=== PATIENT | male | born 1930 | race Caucasian/White ===

== ENCOUNTER 2017-05-01 23:45 | Inpatient (IN) | payer OTHER, MEDICARE ==
[~2017-05-01] VITALS: Ht 175.3 cm; Wt 90.0 kg
[~2017-05-01 23:45] MED LIST: CEPH500 PO; COLE625 PO; DIFL150T PO; ENAL10TA7 PO; LEVO125T3 PO; LIAL1.2T PO; NAME5TAB2 PO; OMEG100037 PO; PRIL40CA PO; RANI150 PO; SIMV20TA PO; TEMA15CA PO; VITA20003 PO; [UNRECOGNIZED DRUG - CODE] PO
[2017-05-01 23:50] VITALS: BP 107/75; PULSE 96; RESP 18; TEMP 98.4; O2SAT 96
[2017-05-02] VITALS (11 sets, daily range): BP systolic 98–143; BP diastolic 55–77; PULSE 75–88; RESP 14–20; TEMP 96.8–98.5; O2SAT 93–99
[2017-05-02] MEDS ORDERED: ENAL10TA PO (00:42)
[2017-05-02] MEDS ORDERED: TEMA15CA PO (00:42)
[2017-05-02] MEDS ORDERED: RANI150T PO (00:42)
[2017-05-02] MEDS ORDERED: MEMA14CA PO (00:42)
[2017-05-02] MEDS ORDERED: WELC625T2 PO ×2 (00:42→16:37)
[2017-05-02] MEDS ORDERED: BALS750C PO (00:42)
[2017-05-02] MEDS ORDERED: OMEP40CA2 PO (00:42)
[2017-05-02] MEDS ORDERED: GALA12TA PO (00:42)
[2017-05-02] MEDS ORDERED: SIMV20TA PO ×2 (00:42→16:43)
[2017-05-02] MEDS ORDERED: LEVO125T4 PO (00:42)
[2017-05-02] MEDS ORDERED: SODIUM CHLORIDE 0.9% FLUSH 10 ML FLUSH IV FLUSH PRN ×2 (00:45→03:45)
--- NOTE | 2017-05-02 01:21 | RADRPT ---
EXAM DATE/TIME: 05/02/2017 00:59 [facility] COMPARISON: CT BRAIN W/O CONTRAST, May 26, 2014, 20:44. INDICATIONS : Nausea and vomiting, syncope. RADIATION DOSE: 63.00 CTDIvol (mGy) MEDICAL HISTORY : Hypertension. Carcinoma, colon. Catalan's esophagus SURGICAL HISTORY : Colon resection. ENCOUNTER: Initial ACUITY: 1 day PAIN SCALE: 4/10 LOCATION: cranial TECHNIQUE: Multiple contiguous axial images were obtained of the head. Using automated exposure control and adj ustment of the mA and/or kV according to patient size, radiation dose was kept as low as reasonably a chievable to obtain optimal diagnostic quality images. DICOM format image data is available electro nically for review and comparison. FINDINGS: CEREBRUM: The ventricles are normal for age. Scattered areas of low attenuation throughout the white matter. N o evidence of midline shift, mass lesion, hemorrhage or acute infarction. No extra-axial fluid colle ctions are seen. POSTERIOR FOSSA: The cerebellum and brainstem are intact. The 4th ventricle is midline. The cerebellopontine angle i s unremarkable. EXTRACRANIAL: The visualized portion of the orbits is intact. SKULL: The calvaria is intact. No evidence of skull fracture. CONCLUSION: 1. Nonspecific white matter changes. 2. No change from previous study. Ag Olivas MD on May 02, 2017 at 1:19 Board Certified Radiologist. This report was verified electronically.
--- NOTE | 2017-05-02 01:21 | RADRPT ---
EXAM DATE/TIME: 05/02/2017 01:08 [facility] COMPARISON: CHEST SINGLE AP, April 07, 2014, 13:18. INDICATIONS : Shortness of breath and vomiting. MEDICAL HISTORY : None. SURGICAL HISTORY : None. ENCOUNTER: Initial ACUITY: 1 day PAIN SCORE: 3/10 LOCATION: Bilateral chest FINDINGS: A single view of the chest demonstrates the lungs to be symmetrically aerated without evidence of mas s, infiltrate or effusion. The cardiomediastinal contours are unremarkable. Tortuous thoracic aorta. Osseous structures are intact. CONCLUSION: No acute disease. Ag Olivas MD on May 02, 2017 at 1:20 Board Certified Radiologist. This report was verified electronically.
[2017-05-02 01:39] LABS: BLOOD, URINE SMALL (NEG); GLUCOSE,URINE NEG (NEG); KETONE, URINE NEG (NEG); PH, URINE 5.5 (5.0-8.5)
[2017-05-02 01:41] LABS: NITRITE,URINE POS (NEG)
[2017-05-02 01:42] LABS: URINE COLOR AMBER (YELLW/STRAW)
[2017-05-02 01:45] LABS: BASOPHIL # 0.2 TH/MM3 (0-0.2); BASOPHIL % 1.7 % (0.0-2.0); EOSINOPHIL # 0.1 TH/MM3 (0-0.4); EOSINOPHIL % 0.9 % (0.0-4.0); HEMATOCRIT 42.7 % (39.0-51.0); LYMPH % 5.1 % (9.0-44.0); LYMPHOCYTE # 0.7 TH/MM3 (1.0-4.8); MEAN CORPUSCULAR HEMOGLOBIN 30.9 PG (27.0-34.0); MEAN CORPUSCULAR HGB CONC 33.3 % (32.0-36.0); MONO % 9.2 % (0.0-8.0); NEUT % 83.1 % (16.0-70.0); PLATELET COUNT 285 TH/MM3 (150-450); RED BLOOD COUNT 4.59 MIL/MM3 (4.50-5.90); RED CELL DISTRIBUTION WIDTH 12.8 % (11.6-17.2); WHITE BLOOD COUNT 14.3 TH/MM3 (4.0-11.0)
[2017-05-02 01:47] LABS: CHLORIDE 107 MEQ/L (98-107); POTASSIUM 3.8 MEQ/L (3.5-5.1); SODIUM (NA) 140 MEQ/L (136-145)
[2017-05-02 01:48] LABS: HEMO FLAGS AUTO DIFF
[2017-05-02 01:51] LABS: ANION GAP 11 MEQ/L (5-15); APTT (PATIENT) 24.9 SEC (24.3-30.1); BICARBONATE 22.3 MEQ/L (21.0-32.0); BLOOD UREA NITROGEN 27 MG/DL (7-18); MAGNESIUM 1.7 MG/DL (1.5-2.5); PROTHROMBIN TIME - PATIENT 10.5 SEC (9.8-11.6)
[2017-05-02 01:53] LABS: ALT (GPT) 18 U/L (12-78); AST (GOT) 19 U/L (15-37); GLOMERULAR FILTRATION RATE 41 ML/MIN (>89)
[2017-05-02 01:55] LABS: BACTERIA, URINE MANY /hpf; COMMENT (UR) CULTURE INDICATED; CULTURE IF INDICATED CULTURE INDICATED
[2017-05-02 01:56] LABS: ALKALINE PHOSPHATASE 69 U/L (45-117)
[2017-05-02 02:08] LABS: BANDS 18 % (0-6); NEUTROPHIL # MANUAL DIFF 12.2 TH/MM3 (1.8-7.7); POLYS (SEG NEUTROPHILS) 67 % (16-70); WBC DIFF SAMPLE 100
[2017-05-02 02:09] LABS: PLATELET ESTIMATE SMEAR NORMAL (NORMAL); PLATELET MORPHOLOGY NORMAL (NORMAL); SCAN/DIFF FINAL DIFF MANUAL
--- NOTE | 2017-05-02 02:34 | PD ---
HPI Chief Complaint: GI Complaint Time Seen by Provider: 00:37 Travel History International Travel<30 days: No Contact w/Intl Traveler<30days: No Traveled to known affect area: No History of Present Illness HPI 86-year-old male presents to the emergency department by EMS transport from home for evaluation of possible seizure versus syncopal episode. According to the patient and his caregiver/power of employee benefits attorney with him he lives has been having some mild diarrhea throughout the day and then this evening had significant nausea with episodes of vomiting and copious diarrhea with syncopal episode while sitting on the toilet with seizure form activity with generalized shaking and then collapsed forward while sitting on the toilet and jerking type activity resolved and patient was placed on the floor by his caregiver and awakened. Patient did not present with a postictal state. There was no trauma. Caregiver states that while he was on the toilet he did lean back and hit his head on the tile wall but that was just as he was leaning backwards there was no fall to the floor. Paramedics arrived and patient was awake. Patient has extensive past medical history that includes CAD with stent placement colon cancer with partial colectomy ulcerative colitis suprapubic catheter insertion with recurrent UTIs and recently completed a course of oral antibiotic Keflex 1 week ago as well as history of Catalan's esophagitis and hypothyroidism. No prior history of C. difficile colitis/diarrheal illness. Patient's had no fever or chills. No cough or congestion or chest pain. Patient denies pain. Patient reports he was awake during the whole episode. PFSH Past Medical History Narrative Medical CAD with stent placement hypertension dyslipidemia dementia colon cancer with partial colectomy suprapubic catheter insertion with recurrent UTIs Catalan's esophagitis inflammatory bowel disease/ulcerative colitis hypothyroidism Cancer: Yes (Colon cancer in 2003, in remission) Cardiovascular Problems: Yes High Cholesterol: Yes Chemotherapy: Yes Coronary Artery Disease: Yes Diabetes: No Diminished Hearing: No Gastrointestinal Disorders: Yes GERD: Yes Genitourinary: Yes (new onset retention March 2014) Hypertension: Yes Implanted Vascular Access Dvce: Yes Musculoskeletal: No Neurologic: No Psychiatric: No Reproductive: No Respiratory: No Immunizations Current: Yes Radiation Therapy: Yes Thyroid Disease: Yes Tetanus Vaccination: Unknown Influenza Vaccination: Yes Past Surgical History Abdominal Surgery: Yes (Colon cancer surgery approx 2003) Body Medical Devices: Cardiac stent placed 20-30 years ago Coronary Stent: Yes (X1) Genitourinary Surgery: Yes (supra pubic cath) Other Surgery: Yes (COLON CA REMOVED, BARRETTS ESOPHAGITIS PROCEDURE) Social History Alcohol Use: Yes (1-2 X PER WEEK ) Tobacco Use: No Substance Use: No Allergies-Medications (Allergen,Severity, Reaction): Coded Allergies: No Known Allergies (Unverified , 05/02/17) Reported Meds & Prescriptions Reported Meds & Active Scripts Active Reported Temazepam 15 Mg Cap 15 Mg PO HS PRN Simvastatin 20 Mg Tab 20 Mg PO DAILY Enalapril (Enalapril Maleate) 10 Mg Tab 10 Mg PO DAILY Levothyroxine (Levothyroxine Sodium) 125 Mcg Tab 125 Mcg PO DAILY Galantamine (Galantamine Hydrobromide) 12 Mg Tab 12 Mg PO BID Namenda Xr (Memantine) 14 Mg Caper 14 Mg PO DAILY Ranitidine (Ranitidine HCl) 150 Mg Tab 150 Mg PO BID Omeprazole 40 Mg Cap 40 Mg PO DAILY Balsalazide 750 Mg Cap 750 Mg PO TID Welchol (Colesevelam HCl) 625 Mg Tab 1,875 Mg PO BID Review of Systems Except as stated in HPI: all other systems reviewed are Neg General / Constitutional: No: Fever, Chills HENT: No: Congestion Cardiovascular: No: Chest Pain or Discomfort Respiratory: No: Shortness of Breath Gastrointestinal: Positive: Nausea, Vomiting, Diarrhea, No: Abdominal Pain, Hematemesis, Hematochezia Genitourinary: No: Urgency, Decreased Urinary Output Musculoskeletal: No: Myalgias, Arthralgias Skin: No Rash Neurologic: Positive: Weakness, Syncope, Seizures Psychiatric: No: Anxiety Hematologic/Lymphatic: No: Easy Bruising Physical Exam Narrative GENERAL: Well-developed well-nourished male in no acute distress no respiratory distress SKIN: Warm and dry. HEAD: Normocephalic. EYES: No scleral icterus. No injection or drainage. NECK: Supple, trachea midline. No JVD or lymphadenopathy. CARDIOVASCULAR: Regular rate and rhythm without murmurs, gallops, or rubs. RESPIRATORY: Breath sounds equal bilaterally. No accessory muscle use. GASTROINTESTINAL: Abdomen soft, non-tender, nondistended. MUSCULOSKELETAL: No cyanosis, or edema. BACK: Nontender without obvious deformity. No CVA tenderness. Data Data Last Documented VS Vital Signs Date Time Temp Pulse Resp B/P Pulse Ox O2 Delivery O2 Flow Rate FiO2 05/02/17 02:38 88 18 104/58 99 Room Air 05/01/17 23:50 98.4 Orders Complete Blood Count With Diff (05/02/17 00:37) Comprehensive Metabolic Panel (05/02/17 00:37) Lipase (05/02/17 00:37) Lactic Acid (05/02/17 00:37) Prothrombin Time / Inr (Pt) (05/02/17 00:37) Act Partial Throm Time (Ptt) (05/02/17 00:37) Urinalysis - C+S If Indicated (05/02/17 00:37) Iv Access Insert/Monitor (05/02/17 00:37) Ecg Monitoring (05/02/17 00:37) Oximetry (05/02/17 00:37) Sodium Chloride 0.9% Flush (Ns Flush) (05/02/17 00:45) Electrocardiogram (05/02/17 00:37) Chest, Single Ap (05/02/17 00:37) Troponin I (05/02/17 00:37) Ct Brain W/O Iv Contrast(Rout) (05/02/17 ) Magnesium (Mg) (05/02/17 00:37) Urine Culture (05/02/17 01:20) Sodium Chlor 0.9% 1000 Ml Inj (Ns 1000 M (05/02/17 02:45) Sodium Chlor 0.9% 1000 Ml Inj (Ns 1000 M (05/02/17 02:45) Blood Culture (05/02/17 02:34) Enteric Path (Stool) (05/02/17 02:34) Piperacil-Tazo 4.5 Gm Premix (Zosyn 4.5 (05/02/17 02:45) Admit Order (Ed Use Only) (05/02/17 ) ^ Saline Lock (05/02/17 02:56) Resp Oxygen Deion C Titrat 1-4 L (05/02/17 ) Notify Dr: Other (05/02/17 02:56) Sodium Chloride 0.9% Flush (Ns Flush) (05/02/17 09:00) Sodium Chloride 0.9% Flush (Ns Flush) (05/02/17 03:00) Labs Laboratory Tests Test 05/02/17 01:20 White Blood Count 14.3 TH/MM3 Red Blood Count 4.59 MIL/MM3 Hemoglobin 14.2 GM/DL Hematocrit 42.7 % Mean Corpuscular Volume 93.0 FL Mean Corpuscular Hemoglobin 30.9 PG Mean Corpuscular Hemoglobin 33.3 % Concent Red Cell Distribution Width 12.8 % Platelet Count 285 TH/MM3 Mean Platelet Volume 8.1 FL Neutrophils (%) (Auto) 83.1 % Lymphocytes (%) (Auto) 5.1 % Monocytes (%) (Auto) 9.2 % Eosinophils (%) (Auto) 0.9 % Basophils (%) (Auto) 1.7 % Neutrophils # (Auto) 12.0 TH/MM3 Lymphocytes # (Auto) 0.7 TH/MM3 Monocytes # (Auto) 1.3 TH/MM3 Eosinophils # (Auto) 0.1 TH/MM3 Basophils # (Auto) 0.2 TH/MM3 CBC Comment AUTO DIFF Differential Total Cells 100 Counted Neutrophils % (Manual) 67 % Band Neutrophils % 18 % Lymphocytes % 8 % Monocytes % 7 % Neutrophils # (Manual) 12.2 TH/MM3 Differential Comment FINAL DIFF MANUAL Platelet Estimate NORMAL Platelet Morphology Comment NORMAL Red Cell Morphology Comment NORMAL Prothrombin Time 10.5 SEC Prothromb Time International 1.0 RATIO Ratio Activated Partial 24.9 SEC Thromboplast Time Urine Color TIFFANY Urine Turbidity CLOUDY Urine pH 5.5 Urine Specific [place] 1.025 Urine Protein 30 mg/dL Urine Glucose (UA) NEG mg/dL Urine Ketones NEG mg/dL Urine Occult Blood SMALL Urine Nitrite POS Urine Bilirubin NEG Urine Leukocyte Esterase MOD Urine RBC 10-14 /hpf Urine WBC 50-99 /hpf Urine WBC Clumps FEW Urine Squamous Epithelial 6-8 /hpf Cells Urine Amorphous Sediment LARGE Urine Bacteria MANY /hpf Microscopic Urinalysis Comment CULTURE INDICATED Sodium Level 140 MEQ/L Potassium Level 3.8 MEQ/L Chloride Level 107 MEQ/L Carbon Dioxide Level 22.3 MEQ/L Anion Gap 11 MEQ/L Blood Urea Nitrogen 27 MG/DL Creatinine 1.60 MG/DL Estimat Glomerular Filtration 41 ML/MIN Rate Random Glucose 153 MG/DL Lactic Acid Level 1.7 mmol/L Calcium Level 8.7 MG/DL Magnesium Level 1.7 MG/DL Total Bilirubin 1.0 MG/DL Aspartate Amino Transf 19 U/L (AST/SGOT) Alanine Aminotransferase 18 U/L (ALT/SGPT) Alkaline Phosphatase 69 U/L Troponin I 0.03 NG/ML Total Protein 7.6 GM/DL Albumin 3.2 GM/DL Lipase 212 U/L MDM Medical Decision Making Medical Screen Exam Complete: Yes Emergency Medical Condition: Yes Medical Record Reviewed: Yes Interpretation(s) Troponin I 0.03, not elevated EKG normal sinus rhythm no acute ST elevation or injury pattern change nonspecific T-wave noted V3 to V6 Last Impressions Chest X-Ray 05/02/17 0037 Signed Impressions: Service Date/Time: Tuesday, May 02, 2017 01:08 - CONCLUSION: No acute disease. Ag Olivas MD Head CT 05/02/17 0000 Signed Impressions: Service Date/Time: Tuesday, May 02, 2017 00:59 - CONCLUSION: 1. Nonspecific white matter changes. 2. No change from previous study. Ag Olivas MD CBC & BMP Diagram 05/02/17 01:20 Vital Signs Date Time Temp Pulse Resp B/P Pulse Ox O2 Delivery O2 Flow Rate FiO2 05/02/17 01:36 84 18 99/69 98 Room Air 05/01/17 23:50 18 05/01/17 23:50 98.4 96 18 107/75 96 05/01/17 23:50 18 96 Room Air Differential Diagnosis Syncope vasovagal syncope seizure sepsis UTI colitis arrhythmia electronic disturbance ACS Narrative Course Patient placed on quality assurance monitor final IV access obtained specimens collected and sent for resulting patient bolused with 1 L of normal saline and administered Zofran 4 mg IV lactic acid ordered EKG shows sinus rhythm with no acute ST elevation or injury pattern change nonspecific T-wave changes CBC is automated differential remarkable for leukocytosis of 14,300 with manual differential 18% bands. Patient presented with heart rate of 96 and has 18% bands meets Sirs criteria Urinalysis is markedly abnormal catheter specimen culture indicated UTI patient now meets sepsis criteria and Cardiac enzyme troponin I 0.03, not elevated Patient even additional IV fluids and Zosyn 4.5 g IV piggyback Patient is informed that he'll be admitted for sepsis with diarrheal illness and UTI with indwelling suprapubic catheter. CT brain noncontrast no acute process chest x-ray no acute process Patient's case discussed with on-call medicine physician Dr. Murray will admit Sepsis Criteria SIRS Criteria (2 or more): Heart rate over 90, WBC > 15763, < 4000 or > 10% bands Sepsis Criteria (SIRS+source): Infect source susp/known (uti) Physician Communication Physician Communication discussed with Dr Murray for admission Diagnosis Primary Impression: Syncope Qualified Code: R55 - Vasovagal syncope Additional Impressions: UTI (urinary tract infection) Sepsis Qualified Code: A41.9 - Sepsis, due to unspecified organism Diarrhea in adult patient Admitting Information Admitting Physician Requests: Admit Terra Wilks MD May 02, 2017 02:34
[2017-05-02] MEDS ORDERED: PIPERACIL-TAZO 4.5 GM PREMIX 100 ML IV ONE (02:45)
[2017-05-02] MEDS ORDERED: SODIUM CHLOR 0.9% 1000 ML INJ 1,000 ML IV ONE ×2 (02:45)
[2017-05-02] MEDS ORDERED: SODIUM CHLORIDE 0.9% FLUSH 10 ML FLUSH IVF PRN (03:00)
[2017-05-02] MEDS ORDERED: ACETAMINOPHEN 325 MG TAB PO PRN (03:45)
[2017-05-02] MEDS ORDERED: MAGNESIUM HYDROXIDE SUSP 30 ML CUP PO PRN (03:45)
[2017-05-02] MEDS ORDERED: ACETAMINOPHEN/HYDROcodone 325 MG/5 MG TAB PO PRN (03:45)
[2017-05-02] MEDS ORDERED: SENNOSIDES 8.6 MG TAB PO PRN (03:45)
[2017-05-02] MEDS ORDERED: ONDANSETRON HCL 4 MG/2 ML VIAL IVP PRN (03:45)
[2017-05-02] MEDS ORDERED: MORPHINE SULFATE 4 MG/ML INJ IV PRN (03:45)
[2017-05-02] MEDS ORDERED: BISACODYL 10 MG SUPP RECTAL PRN (03:45)
[2017-05-02] MEDS ORDERED: LACTULOSE SYRUP 20 GM/30 ML CUP PO PRN (03:45)
[2017-05-02] MEDS: SODIUM CHLOR 0.9% 1000 ML INJ 1,000 ML IV SCH ×3 (04:00→23:51)
[2017-05-02] MEDS ORDERED: BALSALAZIDE 750 MG PO SCH (09:00)
[2017-05-02] MEDS ORDERED: PRAVASTATIN SOD 40 MG TAB PO SCH (09:00)
[2017-05-02] MEDS: SODIUM CHLORIDE 0.9% FLUSH 10 ML FLUSH IV FLUSH SCH ×2 (09:00→21:00)
[2017-05-02] MEDS ORDERED: SODIUM CHLORIDE 0.9% FLUSH 10 ML FLUSH IV FLUSH SCH (09:00)
[2017-05-02] MEDS ORDERED: DOCUSATE SODIUM 50 MG/SENNA 8.6 MG TAB PO SCH (09:00)
[2017-05-02] MEDS: metroNIDAZOLE 500 MG INJ 100 ML IV SCH ×3 (09:55→23:50)
[2017-05-02] MEDS: GALANTAMINE HYDROBROMIDE 4 MG TAB PO SCH ×2 (09:58→21:49)
[2017-05-02] MEDS: LEVOTHYROXINE SODIUM 125 MCG TAB PO SCH (09:59)
[2017-05-02] MEDS: PANTOPRAZOLE SOD 40 MG DELAYED RELEASE TAB PO SCH (09:59)
[2017-05-02] MEDS: COLESEVELAM HCL 625 MG TAB PO SCH ×3 (09:59→21:50)
--- NOTE | 2017-05-02 12:44 | HHI.HP ---
[facility] Primary [facility] Physician Viktoria aPk MD Admission Diagnosis syncope; sepsis; uti; diarrheal illness Diagnoses: (1) Sepsis (2) UTI (urinary tract infection) due to urinary indwelling Still catheter (3) Diarrhea in adult patient (4) Hypotension Chief Complaint: Syncope, diarrhea Travel History International Travel<30 Days: No Contact w/Intl Traveler <30 Da: No Traveled to Known Affected Are: No Sepsis Criteria SIRS Criteria (2 or more): Heart rate over 90, WBC > 99288, < 4000 or > 10% bands Sepsis Criteria (SIRS+source): Infect source susp/known Criteria Outcome: Meets sepsis criteria History of Present Illness 86 year-old man with a history of hypertension, colon cancer was brought to the ED for evaluation of syncope and possible seizure. Although patient is alert and oriented, and states that he is fine, however is a very poor historian and stated has no recollection what happened to him last night. Therefore at this time the history is obtained from ED report and chart review below: " 86-year-old male presents to the emergency department by EMS transport from home for evaluation of possible seizure versus syncopal episode. According to the patient and his caregiver/power of criminal attorney with him he lives has been having some mild diarrhea throughout the day and then this evening had significant nausea with episodes of vomiting and copious diarrhea with syncopal episode while sitting on the toilet with seizure form activity with generalized shaking and then collapsed forward while sitting on the toilet and jerking type activity resolved and patient was placed on the floor by his caregiver and awakened. Patient did not present with a postictal state. There was no trauma. Caregiver states that while he was on the toilet he did lean back and hit his head on the tile wall but that was just as he was leaning backwards there was no fall to the floor. Paramedics arrived and patient was awake. Patient has extensive past medical history that includes CAD with stent placement colon cancer with partial colectomy ulcerative colitis suprapubic catheter insertion with recurrent UTIs and recently completed a course of oral antibiotic Keflex 1 week ago as well as history of Catalan's esophagitis and hypothyroidism. No prior history of C. difficile colitis/diarrheal illness. Patient's had no fever or chills. No cough or congestion or chest pain. Patient denies pain. Patient reports he was awake during the whole episode." Review of Systems ROS Limitations: Poor Historian Except as stated in HPI: all other systems reviewed are Neg Past Family Social History Past Medical History Hypertension, hyperlipidemia, Catalan's esophagus Hypothyroidism Past Surgical History Colon cancer Catalan's Esophagus Reported Medications Temazepam 15 Mg Cap 15 Mg PO HS PRN Simvastatin 20 Mg Tab 20 Mg PO DAILY Enalapril (Enalapril Maleate) 10 Mg Tab 10 Mg PO DAILY Levothyroxine (Levothyroxine Sodium) 125 Mcg Tab 125 Mcg PO DAILY Galantamine (Galantamine Hydrobromide) 12 Mg Tab 12 Mg PO BID Namenda Xr (Memantine) 14 Mg Caper 14 Mg PO DAILY Ranitidine (Ranitidine HCl) 150 Mg Tab 150 Mg PO BID Omeprazole 40 Mg Cap 40 Mg PO DAILY Balsalazide 750 Mg Cap 750 Mg PO TID Welchol (Colesevelam HCl) 625 Mg Tab 1,875 Mg PO BID Allergies: Coded Allergies: No Known Allergies (Unverified , 05/02/17) Family History Secondary to to patient's advanced age, family history not relevant Social History There is no report of tobacco, alcohol or illicit drug intake Physical Exam Vital Signs Vital Signs Date Time Temp Pulse Resp B/P Pulse Ox O2 Delivery O2 Flow Rate FiO2 05/02/17 08:00 97.2 84 20 121/77 93 05/02/17 08:00 93 21 05/02/17 05:48 96.8 87 20 143/72 98 05/02/17 05:25 84 18 98 05/02/17 04:38 83 18 106/63 97 Room Air 05/02/17 04:05 93 21 05/02/17 03:33 84 18 104/55 98 Room Air 05/02/17 02:38 88 18 104/58 99 Room Air 05/02/17 01:36 84 18 99/69 98 Room Air 05/01/17 23:50 18 05/01/17 23:50 98.4 96 18 107/75 96 05/01/17 23:50 18 96 Room Air Physical Exam GENERAL: This is a well-nourished, well-developed patient, in no apparent distress. SKIN: No rashes, ecchymoses or lesions. Cool and dry. HEAD: Atraumatic. Normocephalic. No temporal or scalp tenderness. EYES: Pupils equal round and reactive. Extraocular motions intact. No scleral icterus. No injection or drainage. ENT: Nose without bleeding, purulent drainage or septal hematoma. Throat without erythema, tonsillar hypertrophy or exudate. Uvula midline. Airway patent. NECK: Trachea midline. No JVD or lymphadenopathy. Supple, nontender, no meningeal signs. CARDIOVASCULAR: Regular rate and rhythm without murmurs, gallops, or rubs. RESPIRATORY: Clear to auscultation. Breath sounds equal bilaterally. No wheezes , rales, or rhonchi. GASTROINTESTINAL: Abdomen soft, non-tender, nondistended. No hepato-splenomegaly , or palpable masses. No guarding.SPC in place MUSCULOSKELETAL: Extremities without clubbing, cyanosis, or edema. No joint tenderness, effusion, or edema noted. No calf tenderness. Negative Homans sign bilaterally. NEUROLOGICAL: Awake and alert. Cranial nerves II through XII intact. Motor and sensory grossly within normal limits. Five out of 5 muscle strength in all muscle groups. Normal speech. Laboratory Laboratory Tests Test 05/02/17 01:20 White Blood Count 14.3 Red Blood Count 4.59 Hemoglobin 14.2 Hematocrit 42.7 Mean Corpuscular Volume 93.0 Mean Corpuscular Hemoglobin 30.9 Mean Corpuscular Hemoglobin 33.3 Concent Red Cell Distribution Width 12.8 Platelet Count 285 Mean Platelet Volume 8.1 Neutrophils (%) (Auto) 83.1 Lymphocytes (%) (Auto) 5.1 Monocytes (%) (Auto) 9.2 Eosinophils (%) (Auto) 0.9 Basophils (%) (Auto) 1.7 Neutrophils # (Auto) 12.0 Lymphocytes # (Auto) 0.7 Monocytes # (Auto) 1.3 Eosinophils # (Auto) 0.1 Basophils # (Auto) 0.2 CBC Comment AUTO DIFF Differential Total Cells 100 Counted Neutrophils % (Manual) 67 Band Neutrophils % 18 Lymphocytes % 8 Monocytes % 7 Neutrophils # (Manual) 12.2 Differential Comment FINAL DIFF MANUAL Platelet Estimate NORMAL Platelet Morphology Comment NORMAL Red Cell Morphology Comment NORMAL Prothrombin Time 10.5 Prothromb Time International 1.0 Ratio Activated Partial 24.9 Thromboplast Time Urine Color TIFFANY Urine Turbidity CLOUDY Urine pH 5.5 Urine Specific [place] 1.025 Urine Protein 30 Urine Glucose (UA) NEG Urine Ketones NEG Urine Occult Blood SMALL Urine Nitrite POS Urine Bilirubin NEG Urine Leukocyte Esterase MOD Urine RBC 10-14 Urine WBC 50-99 Urine WBC Clumps FEW Urine Squamous Epithelial 6-8 Cells Urine Amorphous Sediment LARGE Urine Bacteria MANY Microscopic Urinalysis Comment CULTURE INDICATED Sodium Level 140 Potassium Level 3.8 Chloride Level 107 Carbon Dioxide Level 22.3 Anion Gap 11 Blood Urea Nitrogen 27 Creatinine 1.60 Estimat Glomerular Filtration 41 Rate Random Glucose 153 Lactic Acid Level 1.7 Calcium Level 8.7 Magnesium Level 1.7 Total Bilirubin 1.0 Aspartate Amino Transf 19 (AST/SGOT) Alanine Aminotransferase 18 (ALT/SGPT) Alkaline Phosphatase 69 Troponin I 0.03 Total Protein 7.6 Albumin 3.2 Lipase 212 Date/Time Procedure Status Source Growth 05/02/17 03:00 Aerobic Blood Culture Received Blood Peripheral Pending 05/02/17 03:00 Anaerobic Blood Culture Received Blood Peripheral Pending 05/02/17 01:20 Urine Culture Received Urine Clean Catch Pending Result Diagram: 05/02/17 0120 05/02/17 0120 Assessment and Plan Problem List: (1) Sepsis ICD Code: A41.9 Status: Acute (2) UTI (urinary tract infection) ICD Code: N39.0 Status: Acute (3) Diarrhea in adult patient ICD Code: R19.7 Status: Acute (4) Syncope ICD Code: R55 Status: Acute (5) UTI (urinary tract infection) due to urinary indwelling Still catheter ICD Code: T83.511A Status: Acute (6) ARF (acute renal failure) ICD Code: N17.9 Status: Acute Assessment and Plan 86 year-old man with Sepsis: Meets sepsis criteria; Heart rate over 90, WBC > 53895, < 4000 or > 10% bands; Infect source susp/known (UTI+/- C diff), lactic acid of 1.7; started post Zosyn and currently on Cipro IV as well as Flagyl pending culture report Urinary tract infection due to urinary indwelling Still catheter Currently on Cipro IV pending urine culture report Diarrheal in an adult Rule out C. difficile with C. difficile PCR Continue with Cipro and Flagyl Hypotension Secondary to volume loss Continue with IV fluid hydration Acute renal failure Prerenal secondary to dehydration Continue gentle IV fluid hydration and monitor BUN/creatinine Syncope Secondary to dehydration from GI loss Resolved and continue to monitor History of hypertension Secondary to hypotension, will hold all oral antihypertensive medications Other chronic medical conditions including hyperlipidemia, hypothyroidism, UC Continue outpatient medications DVT prophylaxis: Bilateral SCDs GI prophylaxis: PPI Code Status Full code Discussed Condition With Patient Physician Certification 2 Midnight Certification Type: Admission for Inpatient Services Order for Inpatient Services The services are ordered in accordance with Medicare regulations or non- Medicare payer requirements, as applicable. In the case of services not specified as inpatient-only, they are appropriately provided as inpatient services in accordance with the 2-midnight benchmark. Estimated LOS (days): 2 days is the estimated time the patient will need to remain in the hospital, assuming treatment plan goals are met and no additional complications. Post-Hospital Plan: Not yet determined Problem Qualifiers (1) Sepsis: Qualified Code: A41.9 - Sepsis, due to unspecified organism (2) UTI (urinary tract infection): (3) Syncope: Qualified Code: R55 - Vasovagal syncope Ag Diamond MD May 02, 2017 12:44
[2017-05-02] MEDS ORDERED: CETI10 PO (16:39)
[2017-05-02] MEDS ORDERED: LEVO200T4 PO (16:42)
[2017-05-02] MEDS: BALSALAZIDE 750 MG PO SCH (17:45)
--- NOTE | 2017-05-02 18:04 | EKG ---
Date Performed: 05/02/2017 Time Performed: 00:52:04 PTAGE: 86 years EKG: ATRIAL PACED RHYTHM NONSPECIFIC T-WAVE ABNORMALITY T-WAVE CHANGE IS MORE PROMINENT SINCE TN IOR TRACING BORDERLINE ECG PREVIOUS TRACING : 04/07/2014 13.21 DOCTOR: Cody Rose Interpretating Date/Time 05/02/2017 18:03:42
[2017-05-02] MEDS ORDERED: NON-FORMULARY DRUG (Simvastatin 20 MG) PO SCH (21:00)
[2017-05-02] MEDS: CIPROFLOXACIN 400 MG PREMIX 200 ML IV SCH (21:47)
[2017-05-02] MEDS: TEMAZEPAM 15 MG CAP PO PRN (23:50)
[2017-05-03 00:28] VITALS: BP 123/72; PULSE 80; RESP 16; TEMP 98.6; O2SAT 97
[2017-05-03] MEDS: LEVOTHYROXINE SODIUM 125 MCG TAB PO SCH (06:33)
[2017-05-03 08:00] VITALS: BP 121/65; PULSE 80; RESP 19; TEMP 97.4; O2SAT 90
[2017-05-03 08:48] LABS: POTASSIUM 3.8 MEQ/L (3.5-5.1)
--- NOTE | 2017-05-03 08:48 | HHI.PR ---
Subjective Remarks Follow-up sepsis/UTI 05/03/17-patient seen and examined; pleasant, alert and only oriented to self, place but no dates or time. Afebrile Objective Vitals Vital Signs Date Time Temp Pulse Resp B/P Pulse Ox O2 Delivery O2 Flow Rate FiO2 05/03/17 00:28 98.6 80 16 123/72 97 05/02/17 20:28 98.5 82 14 98/63 98 05/02/17 19:30 93 21 05/02/17 16:00 97.5 84 20 122/73 93 05/02/17 12:00 97.3 75 18 118/71 94 I/O 05/02/17 05/02/17 05/02/17 05/03/17 05/03/17 05/03/17 07:00 15:00 23:00 07:00 15:00 23:00 Intake Total 3353 ml 958 ml Output Total 1050 ml 500 ml Balance 2303 ml 458 ml Intake Oral 960 ml IV Total 2393 ml 958 ml Output Urine Total 1050 ml 500 ml # Bowel Movements 0 Result Diagram: 05/02/17 0120 05/02/17 0120 Imaging Last Impressions Chest X-Ray 05/02/17 0037 Signed Impressions: Service Date/Time: Tuesday, May 02, 2017 01:08 - CONCLUSION: No acute disease. Ag Olivas MD Head CT 05/02/17 0000 Signed Impressions: Service Date/Time: Tuesday, May 02, 2017 00:59 - CONCLUSION: 1. Nonspecific white matter changes. 2. No change from previous study. Ag Olivas MD Objective Remarks GENERAL: NAD SKIN: Warm and dry. HEAD: Normocephalic. EYES: No scleral icterus. No injection or drainage. NECK: Supple, trachea midline. No JVD or lymphadenopathy. CARDIOVASCULAR: Regular rate and rhythm without murmurs, gallops, or rubs. RESPIRATORY: Breath sounds equal bilaterally. No accessory muscle use. GASTROINTESTINAL: Abdomen soft, non-tender, nondistended. MUSCULOSKELETAL: No cyanosis, or edema. BACK: Nontender without obvious deformity. No CVA tenderness. A/P Problem List: (1) Sepsis ICD Code: A41.9 Status: Acute (2) UTI (urinary tract infection) ICD Code: N39.0 Status: Acute (3) Diarrhea in adult patient ICD Code: R19.7 Status: Resolved (4) Syncope ICD Code: R55 Status: Resolved (5) UTI (urinary tract infection) due to urinary indwelling Still catheter ICD Code: T83.511A Status: Acute (6) ARF (acute renal failure) ICD Code: N17.9 Status: Acute Assessment and Plan 86 year-old man with Sepsis: Meets sepsis criteria; Heart rate over 90, WBC > 12656, < 4000 or > 10% bands; Infect source susp/known (UTI+/- C diff), lactic acid of 1.7; currently on Cipro IV as well as Flagyl pending culture report Urinary tract infection due to urinary indwelling Still catheter Currently on Cipro IV pending urine culture report Diarrheal in an adult-resolved Will discontinue C. difficile PCR Hypotension-improving Secondary to volume loss Continue with IV fluid hydration Acute renal failure Prerenal secondary to dehydration Continue gentle IV fluid hydration and monitor BUN/creatinine BMP pending Syncope Secondary to dehydration from GI loss Resolved and continue to monitor History of hypertension Secondary to hypotension, continue to hold all oral antihypertensive medications Other chronic medical conditions including hyperlipidemia, hypothyroidism, UC, dementia Continue outpatient medications DVT prophylaxis: Bilateral SCDs GI prophylaxis: PPI Problem Qualifiers (1) Sepsis: Qualified Code: A41.9 - Sepsis, due to unspecified organism (2) UTI (urinary tract infection): (3) Syncope: Qualified Code: R55 - Vasovagal syncope Ag Diamond MD May 03, 2017 08:48
[2017-05-03 08:52] LABS: AUTOMATED NEUTROPHIL # 7.3 TH/MM3 (1.8-7.7); BASOPHIL % 0.3 % (0.0-2.0); EOSINOPHIL # 0.3 TH/MM3 (0-0.4); EOSINOPHIL % 2.9 % (0.0-4.0); HEMATOCRIT 35.6 % (39.0-51.0); HEMO FLAGS DIFF FINAL; LYMPH % 17.2 % (9.0-44.0); LYMPHOCYTE # 1.7 TH/MM3 (1.0-4.8); MEAN CELL VOLUME 94.4 FL (80.0-100.0); MEAN CORPUSCULAR HEMOGLOBIN 31.8 PG (27.0-34.0); MEAN CORPUSCULAR HGB CONC 33.8 % (32.0-36.0); MONO % 6.9 % (0.0-8.0); NEUT % 72.7 % (16.0-70.0); PLATELET COUNT 227 TH/MM3 (150-450); RED BLOOD COUNT 3.78 MIL/MM3 (4.50-5.90)
[2017-05-03 08:58] LABS: BICARBONATE 23.7 MEQ/L (21.0-32.0); CALCIUM-PROTEIN CORRECTED 7.9 MG/DL (8.5-10.1); TOTAL BILIRUBIN ADULT 0.9 MG/DL (0.2-1.0)
[2017-05-03] MEDS: COLESEVELAM HCL 625 MG TAB PO SCH ×4 (09:00→20:35)
[2017-05-03] MEDS: SODIUM CHLORIDE 0.9% FLUSH 10 ML FLUSH IV FLUSH SCH ×2 (09:00→20:35)
[2017-05-03] MEDS: metroNIDAZOLE 500 MG INJ 100 ML IV SCH ×2 (09:41→16:58)
[2017-05-03] MEDS: MEMANTINE 14 MG PO SCH (09:42)
[2017-05-03] MEDS: GALANTAMINE HYDROBROMIDE 4 MG TAB PO SCH ×2 (09:42→20:29)
[2017-05-03] MEDS: PANTOPRAZOLE SOD 40 MG DELAYED RELEASE TAB PO SCH (09:42)
[2017-05-03] MEDS: BALSALAZIDE 750 MG PO SCH ×3 (09:44→16:58)
[2017-05-03] MEDS: SODIUM CHLOR 0.9% 1000 ML INJ 1,000 ML IV SCH ×2 (09:45→17:00)
[2017-05-03 12:00] VITALS: BP 123/66; PULSE 68; RESP 19; TEMP 97.2; O2SAT 93
[2017-05-03 16:00] VITALS: BP 159/89; PULSE 76; RESP 19; TEMP 97.8; O2SAT 95
[2017-05-03] MEDS: PRAVASTATIN SOD 40 MG TAB PO SCH (20:30)
[2017-05-03] MEDS: CIPROFLOXACIN 400 MG PREMIX 200 ML IV SCH (20:31)
[2017-05-03 20:36] VITALS: BP 168/86; PULSE 78; RESP 16; TEMP 98; O2SAT 94
[2017-05-04 01:09] VITALS: BP 159/80; PULSE 70; RESP 18; TEMP 98.9; O2SAT 96
[2017-05-04] MEDS: TEMAZEPAM 15 MG CAP PO PRN (01:38)
[2017-05-04] MEDS: metroNIDAZOLE 500 MG INJ 100 ML IV SCH (01:39)
[2017-05-04 04:30] VITALS: BP 122/68; PULSE 66; RESP 18; TEMP 97.4; O2SAT 94
[2017-05-04] MEDS: SODIUM CHLOR 0.9% 1000 ML INJ 1,000 ML IV SCH ×2 (05:34→17:45)
[2017-05-04] MEDS: LEVOTHYROXINE SODIUM 125 MCG TAB PO SCH (05:45)
[2017-05-04 07:32] LABS: C. DIFF EPI 027 PRESUMPTIVE NEGATIVE (NEGATIVE); C. DIFF TOXIN PCR NEGATIVE (NEGATIVE)
[2017-05-04 08:00] VITALS: BP 170/90; PULSE 72; RESP 18; TEMP 98.3; O2SAT 95
--- NOTE | 2017-05-04 08:42 | HHI.PR ---
Subjective Remarks Follow-up sepsis/UTI 05/03/17-patient seen and examined; pleasant, alert and only oriented to self, place but no dates or time. Afebrile 05/04/17-patient seen and examined, states he didn't have a good night sleep, afebrile, C. difficile PCR negative. Urine culture positive for gram-negative rosina Objective Vitals Vital Signs Date Time Temp Pulse Resp B/P Pulse Ox O2 Delivery O2 Flow Rate FiO2 05/04/17 04:30 97.4 66 18 122/68 94 05/04/17 01:09 98.9 70 18 159/80 96 05/03/17 20:36 98.0 78 16 168/86 94 05/03/17 16:00 97.8 76 19 159/89 95 05/03/17 12:00 97.2 68 19 123/66 93 I/O 05/03/17 05/03/17 05/03/17 05/04/17 05/04/17 05/04/17 07:00 15:00 23:00 07:00 15:00 23:00 Intake Total 958 ml 800 ml 900 ml 1587 ml Output Total 500 ml 35 ml 1250 ml Balance 458 ml 800 ml 865 ml 337 ml IV Total 958 ml 800 ml 900 ml 1587 ml Output Urine Total 500 ml 1250 ml Stool Total 35 ml # Bowel Movements 2 Result Diagram: 05/03/1781105/03/17811 Objective Remarks GENERAL: NAD SKIN: Warm and dry. HEAD: Normocephalic. EYES: No scleral icterus. No injection or drainage. NECK: Supple, trachea midline. No JVD or lymphadenopathy. CARDIOVASCULAR: Regular rate and rhythm without murmurs, gallops, or rubs. RESPIRATORY: Breath sounds equal bilaterally. No accessory muscle use. GASTROINTESTINAL: Abdomen soft, non-tender, nondistended. MUSCULOSKELETAL: No cyanosis, or edema. BACK: Nontender without obvious deformity. No CVA tenderness. A/P Problem List: (1) Sepsis ICD Code: A41.9 Status: Acute (2) UTI (urinary tract infection) ICD Code: N39.0 Status: Acute (3) Diarrhea in adult patient ICD Code: R19.7 Status: Resolved (4) Syncope ICD Code: R55 Status: Resolved (5) UTI (urinary tract infection) due to urinary indwelling Still catheter ICD Code: T83.511A Status: Acute (6) ARF (acute renal failure) ICD Code: N17.9 Status: Acute Assessment and Plan 86 year-old man with Sepsis: Meets sepsis criteria; Heart rate over 90, WBC > 62528, < 4000 or > 10% bands; Infect source susp/known (UTI+/- C diff), lactic acid of 1.7; currently on Cipro IV as well as Flagyl pending culture report. Discontinue Flagyl Urinary tract infection due to urinary indwelling Still upmjapor-wkoe-ohjxlagt rods Currently on Cipro IV Check renal ultrasound and consider urology consultation Diarrheal in an adult C. difficile PCR negative, therefore will discontinue Flagyl Okay to use antidiarrhea motility agent Hypotension-improving Secondary to volume loss Continue with IV fluid hydration Acute renal failure-improving Prerenal secondary to dehydration Continue gentle IV fluid hydration and monitor BUN/creatinine Syncope Secondary to dehydration from GI loss Resolved and continue to monitor History of hypertension As hypotension resolved, restart oral antihypertensive medications accordingly Other chronic medical conditions including hyperlipidemia, hypothyroidism, UC, dementia Continue outpatient medications DVT prophylaxis: Bilateral SCDs GI prophylaxis: PPI Problem Qualifiers (1) Sepsis: Qualified Code: A41.9 - Sepsis, due to unspecified organism (2) UTI (urinary tract infection): (3) Syncope: Qualified Code: R55 - Vasovagal syncope Ag Diamond MD May 04, 2017 08:42
[2017-05-04] MEDS ORDERED: LOPERAMIDE HCL 2 MG CAP PO PRN (08:45)
[2017-05-04] MEDS: BALSALAZIDE 750 MG PO SCH ×3 (10:02→17:44)
[2017-05-04] MEDS: ENALAPRIL MALEATE 10 MG TAB PO SCH (10:02)
[2017-05-04] MEDS: SODIUM CHLORIDE 0.9% FLUSH 10 ML FLUSH IV FLUSH SCH ×2 (10:02→22:01)
[2017-05-04] MEDS: COLESEVELAM HCL 625 MG TAB PO SCH ×4 (10:02→21:58)
[2017-05-04] MEDS: PANTOPRAZOLE SOD 40 MG DELAYED RELEASE TAB PO SCH (10:02)
[2017-05-04] MEDS: MEMANTINE 14 MG PO SCH (10:02)
[2017-05-04] MEDS: GALANTAMINE HYDROBROMIDE 4 MG TAB PO SCH ×2 (10:04→22:00)
--- NOTE | 2017-05-04 10:14 | RADRPT ---
EXAM DATE/TIME: 05/04/2017 09:32 [facility] COMPARISON: CT ABDOMEN & PELVIS W CONTRAST, April 07, 2014, 14:15. EXTERNAL COMPARISON : [facility], CT ABDOMEN AND PELVIS, October 02, 2009[facility], CT ABDOMEN AND PELVIS, Sep. INDICATIONS : Hydronephrosis. MEDICAL HISTORY : Hypercholesterolemia. Hypertension. Gastroesophageal reflux disease. Neck pain. Coronary artery disea se. Colon cancer. Thyroid cancer. Urinary tract infection. Chemotherapy. Shingles. SURGICAL HISTORY : Tonsillectomy. Thyroid cancer removed. Cataract surgery. Coronary stent. Colostomy. Right knee re pair. ENCOUNTER: Initial ACUITY: 1 day PAIN SCORE: 0/10 LOCATION: Bilateral flank MEASUREMENTS: RIGHT KIDNEY: 10.3 x 4.2 x 5.4 cm LEFT KIDNEY: 10.2 x 4.1 x 5.6 cm FINDINGS: RIGHT KIDNEY: Renal cortex is normal in thickness and echotexture. No hydronephrosis, stone, or mass. LEFT KIDNEY: Renal cortex is normal in thickness and echotexture. No hydronephrosis, stone, or mass. There is a simple cyst at the upper pole measuring 15 mm. BLADDER: Decompressed with a Still catheter present. CONCLUSION: 1. There is no hydronephrosis. 2. Simple benign-appearing cyst at the upper pole the left kidney measuring 15 mm. 3. Griffin bladder is not evaluated. It is decompressed with Still catheter present. Cristhian Krishnan MD on May 04, 2017 at 10:06 Board Certified Radiologist. This report was verified electronically.
[2017-05-04 12:00] VITALS: BP 164/82; PULSE 80; RESP 20; TEMP 97.6; O2SAT 95
[2017-05-04 16:00] VITALS: BP 151/87; PULSE 89; RESP 20; TEMP 97.4; O2SAT 96
[2017-05-04 20:00] VITALS: BP 131/67; PULSE 76; RESP 18; TEMP 97.2; O2SAT 93
[2017-05-04] MEDS: PRAVASTATIN SOD 40 MG TAB PO SCH (22:01)
[2017-05-04] MEDS: CIPROFLOXACIN 400 MG PREMIX 200 ML IV SCH (22:02)
[2017-05-05] VITALS: BP 154/83; PULSE 78; RESP 18; TEMP 99.1; O2SAT 95
[2017-05-05] MEDS: TEMAZEPAM 15 MG CAP PO PRN (02:00)
[2017-05-05] MEDS: LEVOTHYROXINE SODIUM 125 MCG TAB PO SCH (06:02)
[2017-05-05] MEDS: SODIUM CHLOR 0.9% 1000 ML INJ 1,000 ML IV SCH (06:04)
[2017-05-05] MEDS: COLESEVELAM HCL 625 MG TAB PO SCH ×2 (09:00→09:20)
[2017-05-05] MEDS: BALSALAZIDE 750 MG PO SCH ×2 (09:20→13:00)
[2017-05-05] MEDS: PANTOPRAZOLE SOD 40 MG DELAYED RELEASE TAB PO SCH (09:20)
[2017-05-05] MEDS: ENALAPRIL MALEATE 10 MG TAB PO SCH (09:20)
[2017-05-05] MEDS: MEMANTINE 14 MG PO SCH (09:20)
[2017-05-05] MEDS: SODIUM CHLORIDE 0.9% FLUSH 10 ML FLUSH IV FLUSH SCH (09:20)
[2017-05-05] MEDS: GALANTAMINE HYDROBROMIDE 4 MG TAB PO SCH (09:21)
--- NOTE | 2017-05-05 10:26 | HHI.PR ---
Subjective Remarks Follow-up sepsis/UTI 05/03/17-patient seen and examined; pleasant, alert and only oriented to self, place but no dates or time. Afebrile 05/04/17-patient seen and examined, states he didn't have a good night sleep, afebrile, C. difficile PCR negative. Urine culture positive for gram-negative rosina 05/05/17-patient seen and examined, patient did well with PT this morning. No diarrhea. Tolerated by mouth well. Objective Vitals Vital Signs Date Time Temp Pulse Resp B/P Pulse Ox O2 Delivery O2 Flow Rate FiO2 05/05/17 00:00 99.1 78 18 154/83 95 05/04/17 20:00 97.2 76 18 131/67 93 05/04/17 16:00 97.4 89 20 151/87 96 05/04/17 12:00 97.6 80 20 164/82 95 I/O 05/04/17 05/04/17 05/04/17 05/05/17 05/05/17 05/05/17 07:00 15:00 23:00 07:00 15:00 23:00 Intake Total 1587 ml 915 ml 631 ml 567 ml Output Total 1250 ml 650 ml Balance 337 ml 265 ml 631 ml 567 ml Intake Oral 625 ml IV Total 1587 ml 290 ml 631 ml 567 ml Output Urine Total 1250 ml 650 ml # Bowel Movements 1 Result Diagram: 05/03/17 0812 05/03/17 0812 Imaging Last Impressions Renal Ultrasound 05/04/17 0000 Signed Impressions: Service Date/Time: Thursday, May 04, 2017 09:32 - CONCLUSION: 1. There is no hydronephrosis. 2. Simple benign-appearing cyst at the upper pole the left kidney measuring 15 mm. 3. Griffin bladder is not evaluated. It is decompressed with Still catheter present. Cristhian Krishnan MD Chest X-Ray 05/02/17 0037 Signed Impressions: Service Date/Time: Tuesday, May 02, 2017 01:08 - CONCLUSION: No acute disease. Ag Olivas MD Head CT 05/02/17 0000 Signed Impressions: Service Date/Time: Tuesday, May 02, 2017 00:59 - CONCLUSION: 1. Nonspecific white matter changes. 2. No change from previous study. Ag Olivas MD Objective Remarks GENERAL: NAD SKIN: Warm and dry. HEAD: Normocephalic. EYES: No scleral icterus. No injection or drainage. NECK: Supple, trachea midline. No JVD or lymphadenopathy. CARDIOVASCULAR: Regular rate and rhythm without murmurs, gallops, or rubs. RESPIRATORY: Breath sounds equal bilaterally. No accessory muscle use. GASTROINTESTINAL: Abdomen soft, non-tender, nondistended. MUSCULOSKELETAL: No cyanosis, or edema. BACK: Nontender without obvious deformity. No CVA tenderness. Procedures none A/P Problem List: (1) Sepsis ICD Code: A41.9 Status: Resolved (2) UTI (urinary tract infection) ICD Code: N39.0 Status: Acute (3) Diarrhea in adult patient ICD Code: R19.7 Status: Resolved (4) Syncope ICD Code: R55 Status: Resolved (5) UTI (urinary tract infection) due to urinary indwelling Still catheter ICD Code: T83.511A Status: Resolved (6) ARF (acute renal failure) ICD Code: N17.9 Status: Acute Assessment and Plan 86 year-old man with Sepsis: Resolved Urinary tract infection due to urinary indwelling Still catheter-insulin pneumonia and MRSA Currently on Cipro IV and will discharge home on Bactrim DS renal ultrasound without any hydronephrosis Diarrheal in an adult-resolved C. difficile PCR negative, Hypotension-improving Secondary to volume loss Continue with IV fluid hydration Acute renal failure-improving Prerenal secondary to dehydration Continue gentle IV fluid hydration and monitor BUN/creatinine Syncope Secondary to dehydration from GI loss Resolved and continue to monitor History of hypertension Continue oral antihypertensive medications accordingly Other chronic medical conditions including hyperlipidemia, hypothyroidism, UC, dementia Continue outpatient medications DVT prophylaxis: Bilateral SCDs GI prophylaxis: PPI Problem Qualifiers (1) Sepsis: Qualified Code: A41.9 - Sepsis, due to unspecified organism (2) UTI (urinary tract infection): (3) Syncope: Qualified Code: R55 - Vasovagal syncope Ag Diamond MD May 05, 2017 10:26
--- NOTE | 2017-05-05 10:27 | HHI.FF ---
Face to Face Verification Diagnosis: (1) Sepsis (2) UTI (urinary tract infection) due to urinary indwelling Still catheter Physical Therapy Order: Evaluate and Treat Home Health Nursing Order: Signs/symptoms of disease process I have seen patient Lane Camilo on 05/05/17. My clinical findings support the need for the requested home health care services because: Deconditioned w/ increased weakness I certify that my clinical findings support that this patient is homebound because: Poor cardiac reserve Ag Diamond MD May 05, 2017 10:27
[2017-05-05] MEDS ORDERED: SULFAMETHOXAZOLE-TRIMETHOPRIM DS 800-160 MG TAB PO SCH (10:30)
--- NOTE | 2017-05-05 10:30 | HHI.DS ---
Discharge Summary Admission Date May 02, 2017 at 02:58 Discharge Date: May 05, 2017 Admitting Diagnosis syncope; sepsis; uti; diarrheal illness (1) Sepsis ICD Code: A41.9 (2) UTI (urinary tract infection) ICD Code: N39.0 (3) Diarrhea in adult patient ICD Code: R19.7 (4) Syncope ICD Code: R55 (5) UTI (urinary tract infection) due to urinary indwelling Still catheter ICD Code: T83.511A (6) ARF (acute renal failure) ICD Code: N17.9 Procedures none Brief History - From Admission 86 year-old man with a history of hypertension, colon cancer was brought to the ED for evaluation of syncope and possible seizure. Although patient is alert and oriented, and states that he is fine, however is a very poor historian and stated has no recollection what happened to him last night. Therefore at this time the history is obtained from ED report and chart review below: " 86-year-old male presents to the emergency department by EMS transport from home for evaluation of possible seizure versus syncopal episode. According to the patient and his caregiver/power of deputy county attorney with him he lives has been having some mild diarrhea throughout the day and then this evening had significant nausea with episodes of vomiting and copious diarrhea with syncopal episode while sitting on the toilet with seizure form activity with generalized shaking and then collapsed forward while sitting on the toilet and jerking type activity resolved and patient was placed on the floor by his caregiver and awakened. Patient did not present with a postictal state. There was no trauma. Caregiver states that while he was on the toilet he did lean back and hit his head on the tile wall but that was just as he was leaning backwards there was no fall to the floor. Paramedics arrived and patient was awake. Patient has extensive past medical history that includes CAD with stent placement colon cancer with partial colectomy ulcerative colitis suprapubic catheter insertion with recurrent UTIs and recently completed a course of oral antibiotic Keflex 1 week ago as well as history of Catalan's esophagitis and hypothyroidism. No prior history of C. difficile colitis/diarrheal illness. Patient's had no fever or chills. No cough or congestion or chest pain. Patient denies pain. Patient reports he was awake during the whole episode." CBC/BMP: 05/03/17 0812 05/03/17 0812 Significant Findings Laboratory Tests Test 05/03/17 08:12 Red Blood Count 3.78 MIL/MM3 (4.50-5.90) Hemoglobin 12.0 GM/DL (13.0-17.0) Hematocrit 35.6 % (39.0-51.0) Neutrophils (%) (Auto) 72.7 % (16.0-70.0) Chloride Level 111 MEQ/L (98-107) Creatinine 1.40 MG/DL (0.60-1.30) Estimat Glomerular Filtration 48 ML/MIN (>89) Rate Calcium Level 7.4 MG/DL (8.5-10.1) Protein Corrected Calcium 7.9 MG/DL (8.5-10.1) Aspartate Amino Transf 10 U/L (15-37) (AST/SGOT) Total Protein 6.2 GM/DL (6.4-8.2) Albumin 2.5 GM/DL (3.4-5.0) Imaging Last Impressions Renal Ultrasound 05/04/17 0000 Signed Impressions: Service Date/Time: Thursday, May 04, 2017 09:32 - CONCLUSION: 1. There is no hydronephrosis. 2. Simple benign-appearing cyst at the upper pole the left kidney measuring 15 mm. 3. Griffin bladder is not evaluated. It is decompressed with Still catheter present. Cristhian Krishnan MD Chest X-Ray 05/02/17 0037 Signed Impressions: Service Date/Time: Tuesday, May 02, 2017 01:08 - CONCLUSION: No acute disease. Ag Olivas MD Head CT 05/02/17 0000 Signed Impressions: Service Date/Time: Tuesday, May 02, 2017 00:59 - CONCLUSION: 1. Nonspecific white matter changes. 2. No change from previous study. Ag Olivas MD PE at Discharge GENERAL: NAD SKIN: Warm and dry. HEAD: Normocephalic. EYES: No scleral icterus. No injection or drainage. NECK: Supple, trachea midline. No JVD or lymphadenopathy. CARDIOVASCULAR: Regular rate and rhythm without murmurs, gallops, or rubs. RESPIRATORY: Breath sounds equal bilaterally. No accessory muscle use. GASTROINTESTINAL: Abdomen soft, non-tender, nondistended. MUSCULOSKELETAL: No cyanosis, or edema. BACK: Nontender without obvious deformity. No CVA tenderness. Hospital Course Patient admitted secondary to sepsis due to UTI for which he was started on IV antibiotics with monitoring of culture. Also due to diarrhea on presentation C. difficile PCR was performed and without C. difficile diarrhea. Symptoms of diarrhea improved. He responding well to IV fluid hydrations with significant improvement of renal function as well as hypotension. He was subsequently restarted back on his oral antihypertensive medications. All electrolyte abnormalities were corrected accordingly. DVT and GI prophylaxis were provided. Physical therapy was consulted. Prio to discharge, patient was started on oral antibiotics which he will complete for total of 10 more days. Patient's condition prior to discharge improved and vitals remained stable. Pt Condition on Discharge: Stable Discharge Disposition: Disch w/ Home Health Serv Discharge Time: > 30 minutes Discharge Instructions DIET: Follow Instructions for: Heart Healthy Diet Activities you can perform: Regular-No Restrictions Follow up Referrals: PCP Follow-up - 1 Week New Medications: Lactobacillus Acidophilus (Lactinex) 1 Chew 1 TAB CHEW BID Nutritional Supplement #60 Ref 0 TAB Sulfamethoxazole-Trimethoprim (Sulfamethoxazole-Trimethoprim) 800-160 Mg Tab 1 TAB PO Q12HR Infection #20 TAB Continued Medications: Balsalazide (Balsalazide) 750 Mg Cap 750 MG PO TID Ulcerative colitis #90 Ref 0 CAP Cetirizine (Cetirizine) 10 Mg Tab 10 MG PO DAILY Allergies Ref 0 TAB Colesevelam (Welchol) 625 Mg Tab 625 MG PO BID Hyperlipidemia,type 2 diabetes #180 Ref 0 TAB Enalapril (Enalapril) 10 Mg Tab 10 MG PO DAILY #30 Ref 0 TAB Galantamine (Galantamine) 12 Mg Tab 12 MG PO BID Alzheimer's Dementia #60 Ref 0 TAB Levothyroxine (Levothyroxine) 200 Mcg Tab 187.5 MCG PO DAILY@0600 Thyroid #30 Ref 0 TAB Memantine Er (Namenda Xr) 14 Mg Caper 14 MG PO DAILY Alzheimer Disease #30 Ref 0 CAP Omeprazole (Omeprazole) 40 Mg Cap 40 MG PO DAILY #30 Ref 0 CAP Ranitidine (Ranitidine) 150 Mg Tab 150 MG PO BID Heartburn Management #60 Ref 0 TAB Simvastatin (Simvastatin) 20 Mg Tab 20 MG PO HS Cholesterol Management #30 Ref 0 TAB Temazepam (Temazepam) 15 Mg Cap 15 MG PO HS PRN INSOMNIA #30 Ref 0 CAP Ag Diamond MD May 05, 2017 10:30
[2017-05-05] MEDS ORDERED: SULF1TAB23 PO (10:36)
[2017-05-05] MEDS ORDERED: LACTCHW3 CHEW (10:36)
== END 2017-05-05 15:10 | disposition home health service (06) | DRG 698 ==
LOC: PHED 23:45 → PHEDA 05-02 02:58 → PH3A 05-02 05:14
PROVIDERS: ADMIT Hospitalist; ATTEND Hospitalist
DX: T83.510A Infection and inflammatory reaction due to cystostomy catheter, initial encounter (principal); A41.02 Sepsis due to Methicillin resistant Staphylococcus aureus; N17.9 Acute kidney failure, unspecified; I95.9 Hypotension, unspecified; N39.0 Urinary tract infection, site not specified; F03.90 Unspecified dementia, unspecified severity, without behavioral disturbance, psychotic disturbance, mood disturbance, and anxiety; B96.1 Klebsiella pneumoniae [K. pneumoniae] as the cause of diseases classified elsewhere; K22.70 Barrett's esophagus without dysplasia; E86.0 Dehydration; R55 Syncope and collapse; I25.10 Atherosclerotic heart disease of native coronary artery without angina pectoris; I10 Essential (primary) hypertension; E78.5 Hyperlipidemia, unspecified; E03.9 Hypothyroidism, unspecified; K21.9 Gastro-esophageal reflux disease without esophagitis; B95.62 Methicillin resistant Staphylococcus aureus infection as the cause of diseases classified elsewhere; R19.7 Diarrhea, unspecified; Y84.6 Urinary catheterization as the cause of abnormal reaction of the patient, or of later complication, without mention of misadventure at the time of the procedure; Z85.850 Personal history of malignant neoplasm of thyroid; Z87.440 Personal history of urinary (tract) infections; Z93.59 Other cystostomy status; Z92.3 Personal history of irradiation; Z92.21 Personal history of antineoplastic chemotherapy; Z85.038 Personal history of other malignant neoplasm of large intestine; Z95.5 Presence of coronary angioplasty implant and graft
CPT/HCPCS: 70450; 71010; 76775; 80053; 81001; 83605; 83690; 83735; 84484; 85007; 85025; 85027; 85610; 85730; 86403; 87040; 87077; 87086; 87147; 87186; 87493; 87506; 93005; J0744; J2405; J2543; J7030

== ENCOUNTER 2017-07-05 17:59 | Emergency (ER) | payer MEDICARE, OTHER ==
[~2017-07-05] VITALS: Ht 175.3 cm; Wt 83.0 kg
[~2017-07-05 17:59] MED LIST changes: +BALS750C PO; -CEPH500 PO; +CETI10 PO; -COLE625 PO; -DIFL150T PO; +ENAL10TA PO; -ENAL10TA7 PO; +GALA12TA PO; +LACTCHW3 CHEW; -LEVO125T3 PO; +LEVO200T4 PO; -LIAL1.2T PO; +MEMA14CA PO; -NAME5TAB2 PO; -OMEG100037 PO; +OMEP40CA2 PO; -PRIL40CA PO; -RANI150 PO; +RANI150T PO; +SULF1TAB23 PO; -VITA20003 PO; +WELC625T2 PO; -[UNRECOGNIZED DRUG - CODE] PO
[2017-07-05 18:05] VITALS: BP 116/71; PULSE 89; RESP 18; TEMP 97.5; O2SAT 94
== END 2017-07-05 18:40 | disposition left against medical advice (07) ==
LOC: PHED 17:59
DX: R68.89 Other general symptoms and signs (principal)
CPT/HCPCS: 99281

== ENCOUNTER 2017-09-10 21:09 | Observation (INO) | payer OTHER, MEDICARE ==
[~2017-09-10] VITALS: Ht 175.3 cm; Wt 86.2 kg
[~2017-09-10 21:09] MED LIST changes: +CALC600T12 PO; +CEPH500 PO; +COLE625 PO; +ENAL10TA7 PO; +FISH100020 PO; +FLUC200T63 PO; +LEVO125T3 PO; +LIAL1.2T PO; +MEMA7CAP PO; +OMEP20TA39 PO; +SIMV20 PO; +TAB-TAB PO; +TEMA15 PO; +VITA20003 PO; -WELC625T2 PO; +[UNRECOGNIZED DRUG - CODE] PO
[2017-09-10 21:13] VITALS: PULSE 114; RESP 20; TEMP 98.1; O2SAT 96
--- NOTE | 2017-09-10 21:38 | PD ---
HPI Chief Complaint: Complaint Time Seen by Provider: 21:21 Travel History International Travel<30 days: No Contact w/Intl Traveler<30days: No Traveled to known affect area: No History of Present Illness HPI This patient has dementia and history is provided by his caregiver who reports she has power of county attorney for healthcare. He has chronic indwelling suprapubic catheter and has multiple infections in the past. He saw his primary physician who did a dipstick urine in the office and prescribed nitrofurantoin. Patient has some generalized weakness and has had several episodes of vomiting and several episodes of diarrhea today. He denies pain. Severity is moderate. No alleviating factors. No exacerbating factors. Duration 2 days PFSH Past Medical History Hx Anticoagulant Therapy: Yes (ASA) Cancer: Yes (THYROID CA, COLON CA ) Cardiovascular Problems: Yes High Cholesterol: Yes Chemotherapy: Yes Coronary Artery Disease: Yes Diabetes: No Diminished Hearing: No Gastrointestinal Disorders: Yes GERD: Yes Genitourinary: Yes ("BLADDER IS STRETCHED" SUPRAPUBIC CATH ) Hypertension: Yes Implanted Vascular Access Dvce: Yes Musculoskeletal: Yes (R KNEE INJURY-TRACTION USED TO REPAIR ) Neurologic: No Psychiatric: No Reproductive: No Respiratory: No Immunizations Current: Yes Radiation Therapy: Yes Thyroid Disease: Yes (THYROID CA REMOVED ) Past Surgical History Abdominal Surgery: Yes (COLOSTOMY AND REVERSAL ) Body Medical Devices: Cardiac stent placed 20-30 years ago Coronary Stent: Yes (X1) Eye Surgery: Yes (CATARACTS/LENSES ) Genitourinary Surgery: Yes (SUPRAPUBPIC CATH ) Oral Surgery: Yes (TONSILECTOMY ) Other Surgery: Yes (COLON CA REMOVED, BARRETTS ESOPHAGITIS PROCEDURE) Social History Alcohol Use: Yes (1-2 X PER WEEK ) Tobacco Use: No Substance Use: No Allergies-Medications (Allergen,Severity, Reaction): Coded Allergies: No Known Allergies (Unverified Adverse Reaction, Unknown, 09/10/17) Reported Meds & Prescriptions Reported Meds & Active Scripts Active Lactinex (Lactobacillus Acidophilus) 1 Chew 1 Tab CHEW BID Sulfamethoxazole-Trimethoprim 800-160 Mg Tab 1 Tab PO Q12HR Reported Aspirin 81 Mg Chew 81 Mg CHEW DAILY Simvastatin 20 Mg Tab 20 Mg PO HS Levothyroxine (Levothyroxine Sodium) 200 Mcg Tab 187.5 Mcg PO DAILY@0600 Cetirizine (Cetirizine HCl) 10 Mg Tab 10 Mg PO DAILY Welchol (Colesevelam HCl) 625 Mg Tab 625 Mg PO BID Temazepam 15 Mg Cap 15 Mg PO HS PRN Enalapril (Enalapril Maleate) 10 Mg Tab 10 Mg PO DAILY Galantamine (Galantamine Hydrobromide) 12 Mg Tab 12 Mg PO BID Namenda Xr (Memantine) 14 Mg Caper 14 Mg PO DAILY Ranitidine (Ranitidine HCl) 150 Mg Tab 150 Mg PO BID Omeprazole 40 Mg Cap 40 Mg PO DAILY Balsalazide 750 Mg Cap 750 Mg PO TID Review of Systems General / Constitutional: No: Fever Eyes: No: Visual changes HENT: No: Headaches Cardiovascular: No: Chest Pain or Discomfort Respiratory: No: Shortness of Breath Gastrointestinal: Positive: Nausea, Vomiting, Diarrhea, No: Abdominal Pain Genitourinary: No: Dysuria Musculoskeletal: Positive: Weakness, No: Pain Skin: No Rash Neurologic: Positive: Weakness Psychiatric: No: Depression Endocrine: No: Polydipsia Hematologic/Lymphatic: No: Easy Bruising Physical Exam Narrative GENERAL: Well-nourished, well-developed patient in no apparent distress. SKIN: Focused skin assessment reveals no rash and nodules. Skin is Warm and dry. HEAD: Atraumatic. Normocephalic. EYES: Pupils equal and round. No scleral icterus. No injection or drainage. ENT: No nasal bleeding or discharge. Mucous membranes pink and moist. NECK: Trachea midline. No JVD. CARDIOVASCULAR: Regular rate and rhythm. No murmur appreciated. RESPIRATORY: No accessory muscle use. Clear to auscultation. Breath sounds equal bilaterally. GASTROINTESTINAL: Abdomen soft, non-tender, nondistended. Hepatic and splenic margins not palpable. Has a suprapubic catheter in place. MUSCULOSKELETAL: No obvious deformities. No clubbing. No cyanosis. No edema. NEUROLOGICAL: Awake and alert. No obvious cranial nerve deficits. Motor grossly within normal limits. Normal speech. PSYCHIATRIC: Appropriate mood and affect; insight and judgment poor Data Data Last Documented VS Vital Signs Date Time Temp Pulse Resp B/P (MAP) Pulse Ox O2 Delivery O2 Flow Rate FiO2 09/10/17 21:45 18 09/10/17 21:13 98.1 114 96 Orders Orders Iv Access Insert/Monitor (09/10/17 21:33) Complete Blood Count With Diff (09/10/17 21:33) Comprehensive Metabolic Panel (09/10/17 21:33) Urinalysis - C+S If Indicated (09/10/17 21:33) Ondansetron Inj (Zofran Inj) (09/10/17 21:45) Sodium Chlor 0.9% 1000 Ml Inj (Ns 1000 M (09/10/17 21:45) Urine Culture (09/10/17 21:48) Admit Order (Ed Use Only) (09/10/17 22:39) Labs Laboratory Tests Test 09/10/17 21:48 White Blood Count 17.9 TH/MM3 Red Blood Count 4.66 MIL/MM3 Hemoglobin 14.9 GM/DL Hematocrit 44.0 % Mean Corpuscular Volume 94.4 FL Mean Corpuscular Hemoglobin 31.9 PG Mean Corpuscular Hemoglobin Concent 33.7 % Red Cell Distribution Width 12.6 % Platelet Count 344 TH/MM3 Mean Platelet Volume 7.5 FL Neutrophils (%) (Auto) 89.2 % Lymphocytes (%) (Auto) 5.5 % Monocytes (%) (Auto) 4.8 % Eosinophils (%) (Auto) 0.0 % Basophils (%) (Auto) 0.5 % Neutrophils # (Auto) 15.9 TH/MM3 Lymphocytes # (Auto) 1.0 TH/MM3 Monocytes # (Auto) 0.9 TH/MM3 Eosinophils # (Auto) 0.0 TH/MM3 Basophils # (Auto) 0.1 TH/MM3 CBC Comment DIFF FINAL Differential Comment Urine Color YELLOW Urine Turbidity CLEAR Urine pH 5.0 Urine Specific [place] 1.034 Urine Protein 100 mg/dL Urine Glucose (UA) NEG mg/dL Urine Ketones 15 mg/dL Urine Occult Blood MOD Urine Nitrite NEG Urine Bilirubin NEG Urine Leukocyte Esterase TRACE Urine RBC 4-9 /hpf Urine WBC 25-49 /hpf Urine WBC Clumps FEW Urine Squamous Epithelial Cells 0-5 /hpf Microscopic Urinalysis Comment CULTURE INDICATED Blood Urea Nitrogen 33 MG/DL Creatinine 1.80 MG/DL Random Glucose 169 MG/DL Total Protein 8.5 GM/DL Albumin 3.7 GM/DL Calcium Level 9.2 MG/DL Alkaline Phosphatase 83 U/L Aspartate Amino Transf (AST/SGOT) 22 U/L Alanine Aminotransferase (ALT/SGPT) 22 U/L Total Bilirubin 1.1 MG/DL Sodium Level 137 MEQ/L Potassium Level 3.8 MEQ/L Chloride Level 101 MEQ/L Carbon Dioxide Level 24.5 MEQ/L Anion Gap 12 MEQ/L Estimat Glomerular Filtration Rate 36 ML/MIN MDM Medical Decision Making Medical Screen Exam Complete: Yes Emergency Medical Condition: Yes Medical Record Reviewed: Yes Differential Diagnosis Cystitis, pyelonephritis, UTI, sepsis Narrative Course I have reviewed the patient's electronic medical record. Patient was hospitalized in April 2017 and urine culture shows Klebsiella and MRSA both sensitive to Bactrim IV placed CBC shows leukocytosis of 18,000 Metabolic profile reasonably normal LFTs are normal Urinalysis shows 20-24 white cells and will be cultured I gave him a dose of IV Zofran and started some normal saline IV Patient meets SIRS criteria. He is weak and elderly and will require [place] and some IV antibiotics and IV fluid Call placed to hospitalist to discuss Sepsis Criteria SIRS Criteria (2 or more): Heart rate over 90, WBC > 68030, < 4000 or > 10% bands Sepsis Criteria (SIRS+source): Infect source susp/known Criteria Outcome: Meets SIRS criteria Diagnosis Primary Impression: UTI (urinary tract infection) due to urinary indwelling Still catheter Qualified Codes: T83.510A - Infection and inflammatory reaction due to cystostomy catheter, initial encounter; N39.0 - Urinary tract infection, site not specified Additional Impression: Systemic inflammatory response syndrome (SIRS) Admitting Information Admitting Physician Requests: Admit Brett Anders MD Sep 10, 2017 21:38
[2017-09-10 21:45] VITALS: BP 160/96; PULSE 111; RESP 18; O2SAT 95
[2017-09-10] MEDS ORDERED: SODIUM CHLOR 0.9% 1000 ML INJ 1,000 ML IV ONE (21:45)
[2017-09-10] MEDS ORDERED: ONDANSETRON HCL 4 MG/2 ML VIAL IVP ONE (21:45)
[2017-09-10 22:01] LABS: AUTOMATED NEUTROPHIL # 15.9 TH/MM3 (1.8-7.7); BASOPHIL # 0.1 TH/MM3 (0-0.2); BASOPHIL % 0.5 % (0.0-2.0); HEMOGLOBIN 14.9 GM/DL (13.0-17.0); LYMPH % 5.5 % (9.0-44.0); MEAN CELL VOLUME 94.4 FL (80.0-100.0); MEAN CORPUSCULAR HEMOGLOBIN 31.9 PG (27.0-34.0); MEAN CORPUSCULAR HGB CONC 33.7 % (32.0-36.0); MEAN PLATELET VOLUME 7.5 FL (7.0-11.0); MONO % 4.8 % (0.0-8.0); MONOCYTE # 0.9 TH/MM3 (0-0.9); NEUT % 89.2 % (16.0-70.0); PLATELET COUNT 344 TH/MM3 (150-450); RED BLOOD COUNT 4.66 MIL/MM3 (4.50-5.90); RED CELL DISTRIBUTION WIDTH 12.6 % (11.6-17.2); WHITE BLOOD COUNT 17.9 TH/MM3 (4.0-11.0)
[2017-09-10 22:02] LABS: BLOOD, URINE MOD (NEG); GLUCOSE,URINE NEG (NEG); KETONE, URINE 15 mg/dL (NEG); NITRITE,URINE NEG (NEG); URINE LEUKOCYTE ESTERASE TRACE (NEG)
[2017-09-10] MEDS ORDERED: ASPI-516 CHEW (22:06)
[2017-09-10 22:08] LABS: CHLORIDE 101 MEQ/L (98-107); SODIUM (NA) 137 MEQ/L (136-145)
[2017-09-10 22:12] LABS: ALBUMIN 3.7 GM/DL (3.4-5.0); BICARBONATE 24.5 MEQ/L (21.0-32.0); CALCIUM 9.2 MG/DL (8.5-10.1)
[2017-09-10 22:13] LABS: BLOOD UREA NITROGEN 33 MG/DL (7-18); GLUCOSE,RANDOM 169 MG/DL (74-106)
[2017-09-10 22:15] LABS: ALT (GPT) 22 U/L (12-78); AST (GOT) 22 U/L (15-37)
[2017-09-10 22:16] LABS: GLOMERULAR FILTRATION RATE 36 ML/MIN (>89)
[2017-09-10 22:17] LABS: TOTAL BILIRUBIN ADULT 1.1 MG/DL (0.2-1.0); TOTAL PROTEIN 8.5 GM/DL (6.4-8.2)
[2017-09-10 22:18] LABS: ALKALINE PHOSPHATASE 83 U/L (45-117)
[2017-09-10 22:21] LABS: BILIRUBIN, URINE NEG (NEG)
[2017-09-10 22:22] LABS: URINE COLOR YELLOW (YELLW/STRAW)
[2017-09-10 22:23] LABS: SQUAMOUS EPITHELIAL CELL URINE 0-5 /hpf (0-5); WHITE BLOOD CELL CLUMPS FEW
[2017-09-10] MEDS ORDERED: ACETAMINOPHEN/HYDROcodone 325 MG/5 MG TAB PO PRN (22:45)
[2017-09-10] MEDS ORDERED: ACETAMINOPHEN/HYDROcodone 325 MG/10 MG TAB PO PRN (22:45)
[2017-09-10] MEDS ORDERED: ACETAMINOPHEN 325 MG TAB PO PRN (22:45)
[2017-09-10] MEDS ORDERED: ONDANSETRON HCL 4 MG/2 ML VIAL IVP PRN (22:45)
[2017-09-10] MEDS ORDERED: MAGNESIUM HYDROXIDE SUSP 30 ML CUP PO PRN (22:45)
[2017-09-10] MEDS ORDERED: SENNOSIDES 8.6 MG TAB PO PRN (22:45)
[2017-09-10] MEDS ORDERED: TEMAZEPAM 15 MG CAP PO PRN (22:45)
[2017-09-10] MEDS ORDERED: LACTULOSE SYRUP 20 GM/30 ML CUP PO PRN (22:45)
[2017-09-10] MEDS ORDERED: BISACODYL 10 MG SUPP RECTAL PRN (22:45)
[2017-09-10] MEDS ORDERED: SODIUM CHLORIDE 0.9% FLUSH 10 ML FLUSH IV FLUSH PRN (22:45)
[2017-09-10 23:00] VITALS: BP 150/88
[2017-09-10 23:45] VITALS: BP 152/76; PULSE 103; RESP 16; TEMP 97.1; O2SAT 94
[2017-09-11] VITALS (7 sets, daily range): BP systolic 141–152; BP diastolic 69–82; PULSE 76–92; RESP 16–20; TEMP 96.4–98.4; O2SAT 18–95
[2017-09-11] MEDS ORDERED: ACYC400T PO (00:11)
[2017-09-11] MEDS: CEFEPIME INJ 1,000 MG in SODIUM CHLORIDE 0.9% INJ 100 ML IV SCH ×3 (00:55→23:48)
[2017-09-11] MEDS: SODIUM CHLOR 0.9% 1000 ML INJ 1,000 ML IV SCH ×4 (02:10→22:12)
[2017-09-11 06:19] LABS: AUTOMATED NEUTROPHIL # 8.7 TH/MM3 (1.8-7.7); BASOPHIL % 0.3 % (0.0-2.0); EOSINOPHIL % 0.3 % (0.0-4.0); HEMATOCRIT 38.5 % (39.0-51.0); HEMOGLOBIN 12.7 GM/DL (13.0-17.0); LYMPH % 16.8 % (9.0-44.0); LYMPHOCYTE # 1.9 TH/MM3 (1.0-4.8); MEAN CELL VOLUME 96.1 FL (80.0-100.0); MEAN CORPUSCULAR HEMOGLOBIN 31.7 PG (27.0-34.0); MEAN PLATELET VOLUME 7.5 FL (7.0-11.0); MONO % 7.6 % (0.0-8.0); MONOCYTE # 0.9 TH/MM3 (0-0.9); PLATELET COUNT 293 TH/MM3 (150-450); RED BLOOD COUNT 4.01 MIL/MM3 (4.50-5.90); RED CELL DISTRIBUTION WIDTH 12.4 % (11.6-17.2); WHITE BLOOD COUNT 11.5 TH/MM3 (4.0-11.0)
[2017-09-11 06:28] LABS: CHLORIDE 107 MEQ/L (98-107); SODIUM (NA) 141 MEQ/L (136-145)
[2017-09-11 07:26] LABS: ALBUMIN 2.9 GM/DL (3.4-5.0); ALKALINE PHOSPHATASE 67 U/L (45-117); ALT (GPT) 15 U/L (12-78); AST (GOT) 15 U/L (15-37); BLOOD UREA NITROGEN 29 MG/DL (7-18); GLOMERULAR FILTRATION RATE 44 ML/MIN (>89); GLUCOSE,RANDOM 105 MG/DL (74-106); TOTAL BILIRUBIN ADULT 0.9 MG/DL (0.2-1.0); TOTAL PROTEIN 7.1 GM/DL (6.4-8.2)
[2017-09-11] MEDS: PANTOPRAZOLE SOD 40 MG DELAYED RELEASE TAB PO SCH (09:00)
[2017-09-11] MEDS: COLESEVELAM HCL 625 MG TAB PO SCH ×2 (09:00→20:58)
[2017-09-11] MEDS: GALANTAMINE HYDROBROMIDE 4 MG TAB PO SCH ×2 (09:00→20:58)
[2017-09-11] MEDS: DOCUSATE SODIUM 50 MG/SENNA 8.6 MG TAB PO SCH ×2 (09:00→20:58)
[2017-09-11] MEDS: SODIUM CHLORIDE 0.9% FLUSH 10 ML FLUSH IV FLUSH SCH ×2 (09:00→20:59)
[2017-09-11] MEDS: MEMANTINE HCL 5 MG TAB PO SCH ×2 (09:00→20:58)
[2017-09-11] MEDS ORDERED: FAMOTIDINE 20 MG TAB PO SCH (09:00)
[2017-09-11] MEDS: FAMOTIDINE 20 MG TAB PO SCH ×2 (09:00→20:58)
--- NOTE | 2017-09-11 13:45 | HHI.HP ---
[facility] Service [place] [facility] Primary Care Physician Viktoria Pak MD Admission Diagnosis SIRS,UTI,gen weakness Diagnoses: Travel History International Travel<30 Days: No Contact w/Intl Traveler <30 Da: No Traveled to Known Affected Are: No Past Family Social History Allergies: Coded Allergies: No Known Allergies (Unverified Allergy, Unknown, 09/10/17) Physical Exam Vital Signs Vital Signs Date Time Temp Pulse Resp B/P (MAP) Pulse Ox O2 Delivery O2 Flow Rate FiO2 09/11/17 12:00 96.7 76 18 141/79 (99) 93 09/11/17 09:34 80 09/11/17 08:00 96.4 81 18 142/69 (93) 92 09/11/17 04:00 97.3 92 16 148/82 (104) 94 09/11/17 02:00 92 09/10/17 23:45 97.1 103 16 152/76 (101) 94 09/10/17 23:00 100 18 150/88 (108) 94 09/10/17 21:45 111 18 160/96 (117) 95 Room Air 09/10/17 21:45 18 09/10/17 21:13 98.1 114 20 96 Physical Exam GENERAL: This is a well-nourished, well-developed patient, in no apparent distress. SKIN: No rashes, ecchymoses or lesions. Cool and dry. HEAD: Atraumatic. Normocephalic. No temporal or scalp tenderness. EYES: Pupils equal round and reactive. Extraocular motions intact. No scleral icterus. No injection or drainage. ENT: Nose without bleeding, purulent drainage or septal hematoma. Throat without erythema, tonsillar hypertrophy or exudate. Uvula midline. Airway patent. NECK: Trachea midline. No JVD or lymphadenopathy. Supple, nontender, no meningeal signs. CARDIOVASCULAR: Regular rate and rhythm without murmurs, gallops, or rubs. RESPIRATORY: Clear to auscultation. Breath sounds equal bilaterally. No wheezes , rales, or rhonchi. GASTROINTESTINAL: Abdomen soft, non-tender, nondistended. No hepato-splenomegaly , or palpable masses. No guarding. MUSCULOSKELETAL: Extremities without clubbing, cyanosis, or edema. No joint tenderness, effusion, or edema noted. No calf tenderness. Negative Homans sign bilaterally. NEUROLOGICAL: Awake and alert. Cranial nerves II through XII intact. Motor and sensory grossly within normal limits. Five out of 5 muscle strength in all muscle groups. Normal speech. Laboratory Laboratory Tests Test 09/10/17 21:48 09/10/17 22:52 09/11/17 05:30 White Blood Count 17.9 11.5 Red Blood Count 4.66 4.01 Hemoglobin 14.9 12.7 Hematocrit 44.0 38.5 Mean Corpuscular Volume 94.4 96.1 Mean Corpuscular Hemoglobin 31.9 31.7 Mean Corpuscular Hemoglobin Concent 33.7 33.0 Red Cell Distribution Width 12.6 12.4 Platelet Count 344 293 Mean Platelet Volume 7.5 7.5 Neutrophils (%) (Auto) 89.2 75.0 Lymphocytes (%) (Auto) 5.5 16.8 Monocytes (%) (Auto) 4.8 7.6 Eosinophils (%) (Auto) 0.0 0.3 Basophils (%) (Auto) 0.5 0.3 Neutrophils # (Auto) 15.9 8.7 Lymphocytes # (Auto) 1.0 1.9 Monocytes # (Auto) 0.9 0.9 Eosinophils # (Auto) 0.0 0.0 Basophils # (Auto) 0.1 0.0 CBC Comment DIFF FINAL DIFF FINAL Differential Comment Urine Color YELLOW Urine Turbidity CLEAR Urine pH 5.0 Urine Specific [place] 1.034 Urine Protein 100 Urine Glucose (UA) NEG Urine Ketones 15 Urine Occult Blood MOD Urine Nitrite NEG Urine Bilirubin NEG Urine Leukocyte Esterase TRACE Urine RBC 4-9 Urine WBC 25-49 Urine WBC Clumps FEW Urine Squamous Epithelial Cells 0-5 Microscopic Urinalysis Comment CULTURE INDICATED Blood Urea Nitrogen 33 29 Creatinine 1.80 1.50 Random Glucose 169 105 Total Protein 8.5 7.1 Albumin 3.7 2.9 Calcium Level 9.2 8.0 Alkaline Phosphatase 83 67 Aspartate Amino Transf (AST/SGOT) 22 15 Alanine Aminotransferase (ALT/SGPT) 22 15 Total Bilirubin 1.1 0.9 Sodium Level 137 141 Potassium Level 3.8 4.1 Chloride Level 101 107 Carbon Dioxide Level 24.5 25.0 Anion Gap 12 9 Estimat Glomerular Filtration Rate 36 44 Lactic Acid Level 1.5 Date/Time Source Procedure Growth Status 09/10/17 21:48 Urine Clean Catch Urine Culture Pending Received Result Diagram: 09/11/1752909/11/17529 Caprini VTE Risk Assessment Caprini Risk Assessment Model Point Value = 1 Point Value = 2 Point Value = 3 Point Value = 5 Age 41-60 Minor surgery BMI > 25 kg/m2 Swollen legs Varicose veins or History of unexplained or recurrent spontaneous Oral contraceptives or hormone replacement Sepsis (< 1 month) Serious lung disease, including pneumonia (< 1 month) Abnormal pulmonary function Acute myocardial infarction Congestive heart failure (< 1 month) History of inflammatory bowel disease Medical patient at bed rest Age 61-74 Arthroscopic surgery Major open surgery (> 45 min) Laparoscopic surgery (> 45 min) Malignancy Confined to bed (> 72 hours) Immobilizing plaster cast Central venous access Age >= 75 History of VTE Family history of VTE Factor V Leiden Prothrombin [id number] Lupus anticoagulant Anticardiolipin antibodies Elevated serum homocysteine Heparin-induced thrombocytopenia Other congenital or acquired thrombophilia Stroke (< 1 month) Elective arthroplasty Hip, pelvis, or leg fracture Acute spinal cord injury (< 1 month) Prophylaxis Regimen Total Risk Factor Score Risk Level Prophylaxis Regimen 0-1 Low Early ambulation 2 Moderate Order ONE of the following: *Sequential Compression Device (SCD) *Heparin 5000 units SQ BID 3-4 Higher Order ONE of the following medications: *Heparin 5000 units SQ TID *Enoxaparin/Lovenox 40 mg SQ daily (WT < 150 kg, CrCl > 30 mL/min) *Enoxaparin/Lovenox 30 mg SQ daily (WT < 150 kg, CrCl > 10-29 mL/min) *Enoxaparin/Lovenox 30 mg SQ BID (WT < 150 kg, CrCl > 30 mL/min) AND/OR *Sequential Compression Device (SCD) 5 or more Highest Order ONE of the following medications: *Heparin 5000 units SQ TID (Preferred with Epidurals) *Enoxaparin/Lovenox 40 mg SQ daily (WT < 150 kg, CrCl > 30 mL/min) *Enoxaparin/Lovenox 30 mg SQ daily (WT < 150 kg, CrCl > 10-29 mL/min) *Enoxaparin/Lovenox 30 mg SQ BID (WT < 150 kg, CrCl > 30 mL/min) AND *Sequential Compression Device (SCD) Physician Certification Order for Inpatient Services The services are ordered in accordance with Medicare regulations or non- Medicare payer requirements, as applicable. In the case of services not specified as inpatient-only, they are appropriately provided as inpatient services in accordance with the 2-midnight benchmark. days is the estimated time the patient will need to remain in the hospital, assuming treatment plan goals are met and no additional complications. Tr Velasquez DO Sep 11, 2017 1:44 pm
--- NOTE | 2017-09-11 13:53 | HHI.HP ---
HPI Service [place] [facility]ists Primary Care Physician Viktoria Pak MD Admission Diagnosis SIRS,UTI,gen weakness Diagnoses: Chief Complaint: Nausea vomiting generalized weakness. Travel History International Travel<30 Days: No Contact w/Intl Traveler <30 Da: No Traveled to Known Affected Are: No History of Present Illness Mr. Camilo is a pleasant 87-year-old male with a history of dementia, chronic indwelling suprapubic catheter who presented to the emergency department on 09/10/2017 due to generalized weakness and nausea vomiting. ED documentation indicates patient had several episodes of nausea vomiting and diarrhea. However patient reports only one episode of nausea vomiting and diarrhea. Patient saw his primary care physician where he had a dipstick urinalysis which indicated infection. Patient was prescribed nitrofurantoin. At the time of this interview, patient is sitting in his chair. Denies any chest pain, shortness of breath, fever or chills. Denies any nausea vomiting diarrhea. Review of Systems Except as stated in HPI: all other systems reviewed are Neg Past Family Social History Past Medical History Hypertension, colon cancer, thyroid cancer Past Surgical History Colonic resection, cataract surgery, tonsillectomy, thyroid surgery Reported Medications Lactinex (Lactobacillus Acidophilus) 1 Chew 1 Tab CHEW BID Sulfamethoxazole-Trimethoprim 800-160 Mg Tab 1 Tab PO Q12HR Reported Aspirin 81 Mg Chew 81 Mg CHEW DAILY Simvastatin 20 Mg Tab 20 Mg PO HS Levothyroxine (Levothyroxine Sodium) 200 Mcg Tab 187.5 Mcg PO DAILY@0600 Cetirizine (Cetirizine HCl) 10 Mg Tab 10 Mg PO DAILY Welchol (Colesevelam HCl) 625 Mg Tab 625 Mg PO BID Temazepam 15 Mg Cap 15 Mg PO HS PRN Enalapril (Enalapril Maleate) 10 Mg Tab 10 Mg PO DAILY Galantamine (Galantamine Hydrobromide) 12 Mg Tab 12 Mg PO BID Namenda Xr (Memantine) 14 Mg Caper 14 Mg PO DAILY Ranitidine (Ranitidine HCl) 150 Mg Tab 150 Mg PO BID Omeprazole 40 Mg Cap 40 Mg PO DAILY Balsalazide 750 Mg Cap 750 Mg PO TID Allergies: Coded Allergies: No Known Allergies (Unverified Allergy, Unknown, 09/10/17) Family History No family history of Alzheimer's or Parkinson's Social History Patient denies using tobacco, illicit drugs. He drinks alcohol 1-2 times per week. Physical Exam Vital Signs Vital Signs Date Time Temp Pulse Resp B/P (MAP) Pulse Ox O2 Delivery O2 Flow Rate FiO2 09/11/17 12:00 96.7 76 18 141/79 (99) 93 09/11/17 09:34 80 09/11/17 08:00 96.4 81 18 142/69 (93) 92 09/11/17 04:00 97.3 92 16 148/82 (104) 94 09/11/17 02:00 92 09/10/17 23:45 97.1 103 16 152/76 (101) 94 09/10/17 23:00 100 18 150/88 (108) 94 09/10/17 21:45 111 18 160/96 (117) 95 Room Air 09/10/17 21:45 18 09/10/17 21:13 98.1 114 20 96 Physical Exam GENERAL: This is a well-nourished, well-developed patient, in no apparent distress. SKIN: No rashes, ecchymoses or lesions. Warm and dry. HEAD: Atraumatic. Normocephalic. No temporal or scalp tenderness. EYES: Pupils equal round and reactive. No injection or drainage. ENT: Nose without bleeding, purulent drainage or septal hematoma. Airway patent. NECK: Trachea midline. No lymphadenopathy. Supple, nontender, no meningeal signs. CARDIOVASCULAR: Regular rate and rhythm without murmurs, gallops, or rubs. No JVD. RESPIRATORY: Clear to auscultation. Breath sounds equal bilaterally. No wheezes , rales, or rhonchi. GASTROINTESTINAL: Abdomen soft, non-tender, nondistended. No guarding. Suprapubic catheter in place MUSCULOSKELETAL: Extremities without clubbing, cyanosis, or edema. NEUROLOGICAL: Awake and alert. Cranial nerves II through XII intact. No focal neurological deficits. Normal speech. Laboratory Laboratory Tests Test 09/10/17 21:48 09/10/17 22:52 09/11/17 05:30 White Blood Count 17.9 11.5 Red Blood Count 4.66 4.01 Hemoglobin 14.9 12.7 Hematocrit 44.0 38.5 Mean Corpuscular Volume 94.4 96.1 Mean Corpuscular Hemoglobin 31.9 31.7 Mean Corpuscular Hemoglobin Concent 33.7 33.0 Red Cell Distribution Width 12.6 12.4 Platelet Count 344 293 Mean Platelet Volume 7.5 7.5 Neutrophils (%) (Auto) 89.2 75.0 Lymphocytes (%) (Auto) 5.5 16.8 Monocytes (%) (Auto) 4.8 7.6 Eosinophils (%) (Auto) 0.0 0.3 Basophils (%) (Auto) 0.5 0.3 Neutrophils # (Auto) 15.9 8.7 Lymphocytes # (Auto) 1.0 1.9 Monocytes # (Auto) 0.9 0.9 Eosinophils # (Auto) 0.0 0.0 Basophils # (Auto) 0.1 0.0 CBC Comment DIFF FINAL DIFF FINAL Differential Comment Urine Color YELLOW Urine Turbidity CLEAR Urine pH 5.0 Urine Specific [place] 1.034 Urine Protein 100 Urine Glucose (UA) NEG Urine Ketones 15 Urine Occult Blood MOD Urine Nitrite NEG Urine Bilirubin NEG Urine Leukocyte Esterase TRACE Urine RBC 4-9 Urine WBC 25-49 Urine WBC Clumps FEW Urine Squamous Epithelial Cells 0-5 Microscopic Urinalysis Comment CULTURE INDICATED Blood Urea Nitrogen 33 29 Creatinine 1.80 1.50 Random Glucose 169 105 Total Protein 8.5 7.1 Albumin 3.7 2.9 Calcium Level 9.2 8.0 Alkaline Phosphatase 83 67 Aspartate Amino Transf (AST/SGOT) 22 15 Alanine Aminotransferase (ALT/SGPT) 22 15 Total Bilirubin 1.1 0.9 Sodium Level 137 141 Potassium Level 3.8 4.1 Chloride Level 101 107 Carbon Dioxide Level 24.5 25.0 Anion Gap 12 9 Estimat Glomerular Filtration Rate 36 44 Lactic Acid Level 1.5 Date/Time Source Procedure Growth Status 09/10/17 21:48 Urine Clean Catch Urine Culture Pending Received Result Diagram: 09/11/1752909/11/17529 Caprini VTE Risk Assessment Caprini VTE Risk Assessment: No/Low Risk (score <= 1) Caprini Risk Assessment Model Point Value = 1 Point Value = 2 Point Value = 3 Point Value = 5 Age 41-60 Minor surgery BMI > 25 kg/m2 Swollen legs Varicose veins or History of unexplained or recurrent spontaneous Oral contraceptives or hormone replacement Sepsis (< 1 month) Serious lung disease, including pneumonia (< 1 month) Abnormal pulmonary function Acute myocardial infarction Congestive heart failure (< 1 month) History of inflammatory bowel disease Medical patient at bed rest Age 61-74 Arthroscopic surgery Major open surgery (> 45 min) Laparoscopic surgery (> 45 min) Malignancy Confined to bed (> 72 hours) Immobilizing plaster cast Central venous access Age >= 75 History of VTE Family history of VTE Factor V Leiden Prothrombin [id number] Lupus anticoagulant Anticardiolipin antibodies Elevated serum homocysteine Heparin-induced thrombocytopenia Other congenital or acquired thrombophilia Stroke (< 1 month) Elective arthroplasty Hip, pelvis, or leg fracture Acute spinal cord injury (< 1 month) Prophylaxis Regimen Total Risk Factor Score Risk Level Prophylaxis Regimen 0-1 Low Early ambulation 2 Moderate Order ONE of the following: *Sequential Compression Device (SCD) *Heparin 5000 units SQ BID 3-4 Higher Order ONE of the following medications: *Heparin 5000 units SQ TID *Enoxaparin/Lovenox 40 mg SQ daily (WT < 150 kg, CrCl > 30 mL/min) *Enoxaparin/Lovenox 30 mg SQ daily (WT < 150 kg, CrCl > 10-29 mL/min) *Enoxaparin/Lovenox 30 mg SQ BID (WT < 150 kg, CrCl > 30 mL/min) AND/OR *Sequential Compression Device (SCD) 5 or more Highest Order ONE of the following medications: *Heparin 5000 units SQ TID (Preferred with Epidurals) *Enoxaparin/Lovenox 40 mg SQ daily (WT < 150 kg, CrCl > 30 mL/min) *Enoxaparin/Lovenox 30 mg SQ daily (WT < 150 kg, CrCl > 10-29 mL/min) *Enoxaparin/Lovenox 30 mg SQ BID (WT < 150 kg, CrCl > 30 mL/min) AND *Sequential Compression Device (SCD) Assessment and Plan Problem List: (1) UTI (urinary tract infection) due to urinary indwelling Still catheter ICD Code: T83.511A - Infection and inflammatory reaction due to indwelling urethral catheter, initial encounter; N39.0 - Urinary tract infection, site not specified Status: Resolved (2) Dementia ICD Code: F03.90 - Unspecified dementia without behavioral disturbance Assessment and Plan Mr. Camilo is a pleasant 87-year-old male with a history of dementia, colon cancer, chronic suprapubic catheter who presented to the emergency department on 09/10/2017 due to nausea vomiting, diarrhea and generalized weakness. ED workup indicated possible UTI. Urinalysis showed urine WBC 25-49 , trace positive urine leukocyte esterase, nitrite negative. - Possible urinary tract infection - Chronic indwelling suprapubic catheter - Follow urine culture and sensitivity. - Continue cefepime for now. - Continue normal saline at 100 cc per hour. - Dementia - Hyperlipidemia - Continue home medications. Full code. Ambulation. [facility] [place] plan : If patient remains afebrile, possible discharge in the morning. Problem Qualifiers (1) UTI (urinary tract infection) due to urinary indwelling Still catheter: Qualified Codes: T83.510A - Infection and inflammatory reaction due to cystostomy catheter, initial encounter; N39.0 - Urinary tract infection, site not specified Tr Velasquez DO Sep 11, 2017 1:53 pm
[2017-09-11] MEDS ORDERED: PRAVASTATIN SOD 40 MG TAB PO SCH (21:00)
[2017-09-12] VITALS: BP 121/62; PULSE 75; RESP 18; TEMP 97.7; O2SAT 94
[2017-09-12 02:00] VITALS: BP 121/62; PULSE 75; RESP 18; TEMP 97.7; O2SAT 94
[2017-09-12 08:00] VITALS: BP 148/91; PULSE 78; RESP 14; TEMP 97.6; O2SAT 93
[2017-09-12] MEDS: FAMOTIDINE 20 MG TAB PO SCH ×3 (08:56→09:00)
[2017-09-12] MEDS: MEMANTINE HCL 5 MG TAB PO SCH (08:56)
[2017-09-12] MEDS: PANTOPRAZOLE SOD 40 MG DELAYED RELEASE TAB PO SCH ×2 (08:57→08:59)
[2017-09-12] MEDS: COLESEVELAM HCL 625 MG TAB PO SCH (08:57)
[2017-09-12] MEDS: GALANTAMINE HYDROBROMIDE 4 MG TAB PO SCH (08:57)
[2017-09-12] MEDS: DOCUSATE SODIUM 50 MG/SENNA 8.6 MG TAB PO SCH (08:58)
[2017-09-12] MEDS: SODIUM CHLORIDE 0.9% FLUSH 10 ML FLUSH IV FLUSH SCH (09:00)
[2017-09-12] MEDS: CEFEPIME INJ 1,000 MG in SODIUM CHLORIDE 0.9% INJ 100 ML IV SCH (11:32)
--- NOTE | 2017-09-12 12:25 | HHI.FF ---
Face to Face Verification Diagnosis: (1) Dementia (2) UTI (urinary tract infection) due to urinary indwelling Still catheter Physical Therapy Order: Evaluate and Treat, Improve ambulation, Strength and gait training Home Health Nursing Order: Medical education Signs/symptoms of disease process Medication education-adverse effect Nursing assessment with vital signs I have seen patient Lane Camilo on 09/12/17. My clinical findings support the need for the requested home health care services because: Ltd mobility - disease progression Deconditioned w/ increased weakness Limited ability to care for self Need for psychosocial assistance Impaired cognition/judgement Infection w/ risk of complications I certify that my clinical findings support that this patient is homebound because: Impaired cognitive ability/safety Unsteady gait/balance Unsafe to leave home unassisted Need for psychosocial assistance Unable to use public transportation Tr Velasquez DO Sep 12, 2017 12:25
--- NOTE | 2017-09-12 12:28 | HHI.PR ---
Subjective Remarks Follow up for generalized weakness, possible UTI. Patient is currently doing well. No fever, chills. Wants to go home. Caregiver at bedside. Objective Vitals Vital Signs Date Time Temp Pulse Resp B/P (MAP) Pulse Ox O2 Delivery O2 Flow Rate FiO2 09/12/17 08:00 97.6 78 14 148/91 (110) 93 09/12/17 02:00 97.7 75 18 121/62 (81) 94 09/12/17 00:00 97.7 75 18 121/62 (81) 94 09/11/17 20:00 98.4 85 20 152/77 (102) 95 09/11/17 16:00 96.9 76 18 141/69 (93) 18 I/O 09/11/17 09/11/17 09/11/17 09/12/17 09/12/17 09/12/17 07:00 15:00 23:00 07:00 15:00 23:00 Intake Total 1590 ml 100 ml 1480 ml 460 ml 358 ml Output Total 200 ml 650 ml 750 ml Balance 1390 ml 100 ml 830 ml -290 ml 358 ml Intake Oral 240 ml 480 ml 360 ml 358 ml IV Total 1350 ml 100 ml 1000 ml 100 ml Output Urine Total 200 ml 650 ml 750 ml # Bowel Movements 0 0 Result Diagram: 09/11/1752909/11/17529 Objective Remarks GENERAL: Alert, NAD. SKIN: Warm and dry. HEAD: Normocephalic. EYES: No scleral icterus. No injection or drainage. NECK: Supple, trachea midline. No JVD or lymphadenopathy. CARDIOVASCULAR: Regular rate and rhythm without murmurs, gallops, or rubs. RESPIRATORY: Breath sounds equal bilaterally. No accessory muscle use. GASTROINTESTINAL: Abdomen soft, non-tender, nondistended. MUSCULOSKELETAL: No cyanosis, or edema. BACK: Nontender without obvious deformity. No CVA tenderness. Procedures None. A/P Problem List: (1) UTI (urinary tract infection) due to urinary indwelling Still catheter ICD Code: T83.511A - Infection and inflammatory reaction due to indwelling urethral catheter, initial encounter; N39.0 - Urinary tract infection, site not specified Status: Resolved (2) Dementia ICD Code: F03.90 - Unspecified dementia without behavioral disturbance Assessment and Plan Mr. Camilo is a pleasant 87-year-old male with a history of dementia, colon cancer, chronic suprapubic catheter who presented to the emergency department on 09/10/2017 due to nausea vomiting, diarrhea and generalized weakness. ED workup indicated possible UTI. Urinalysis showed urine WBC 25-49 , trace positive urine leukocyte esterase, nitrite negative. - Possible urinary tract infection - Chronic indwelling suprapubic catheter - Follow urine culture and sensitivity. - Continued cefepime - Continued normal saline at 100 cc per hour. - Called Microbiology lab - Urine culture shows [id number]. This is likely colonization. We will not continue any further abx. - Caregiver at bedside reports that patient looks 100% better. - Dementia - Hyperlipidemia - Continue home medications. Full code. Ambulation. SCDs Discharge patient to home with home health Condition on discharge: Improved Regular Diet as tolerated Ad Iliana activity Rx written: No new meds. Follow-up with primary care physician within two weeks. Problem Qualifiers (1) UTI (urinary tract infection) due to urinary indwelling Still catheter: Qualified Codes: T83.510A - Infection and inflammatory reaction due to cystostomy catheter, initial encounter; N39.0 - Urinary tract infection, site not specified Tr Velasquez DO Sep 12, 2017 12:27
== END 2017-09-12 13:19 | disposition home or self-care (01) ==
LOC: PHED 21:09 → INTOOBSV 22:40 → PHEDA 22:40 → PH3B 09-11
PROVIDERS: ADMIT Hospitalist; ATTEND Hospitalist
DX: N39.0 Urinary tract infection, site not specified (principal); B96.1 Klebsiella pneumoniae [K. pneumoniae] as the cause of diseases classified elsewhere; T83.511A Infection and inflammatory reaction due to indwelling urethral catheter, initial encounter; R11.2 Nausea with vomiting, unspecified; R19.7 Diarrhea, unspecified; I10 Essential (primary) hypertension; Z93.59 Other cystostomy status; F03.90 Unspecified dementia, unspecified severity, without behavioral disturbance, psychotic disturbance, mood disturbance, and anxiety; Y84.6 Urinary catheterization as the cause of abnormal reaction of the patient, or of later complication, without mention of misadventure at the time of the procedure; Z85.850 Personal history of malignant neoplasm of thyroid; Z85.038 Personal history of other malignant neoplasm of large intestine
CPT/HCPCS: 80053; 81001; 83605; 85025; 87077; 87086; 87186; 96361; 96365; 96375; 97162; 99285; G0378; G8987; G8988; J0692; J2405; J7030; 96374

== ENCOUNTER 2017-10-23 19:08 | Observation (INO) | payer OTHER ==
[~2017-10-23] VITALS: Ht 175.3 cm; Wt 87.0 kg
[~2017-10-23 19:08] MED LIST changes: +ASPI-516 CHEW; -CALC600T12 PO; -CEPH500 PO; -ENAL10TA7 PO; -FISH100020 PO; -FLUC200T63 PO; -LEVO125T3 PO; -LIAL1.2T PO; -MEMA7CAP PO; -OMEP20TA39 PO; -SIMV20 PO; -SULF1TAB23 PO; -TAB-TAB PO; -TEMA15 PO; -VITA20003 PO; -[UNRECOGNIZED DRUG - CODE] PO
[2017-10-23 19:28] VITALS: BP 116/64; PULSE 85; RESP 18; TEMP 97.4; O2SAT 97
[2017-10-23] MEDS ORDERED: SODIUM CHLOR 0.9% 1000 ML INJ 1,000 ML IV ONE (19:30)
[2017-10-23 19:32] VITALS: O2SAT 97
--- NOTE | 2017-10-23 19:32 | PD ---
HPI . Syncope Chief Complaint: Syncope/Near-Syncope Time Seen by Provider: 19:20 Travel History International Travel<30 days: No Contact w/Intl Traveler<30days: No History of Present Illness HPI Patient was sent to us for EVAC for a syncopal episode which occurred while he was sitting on the toilet. EVAC obtained history from his caregiver. She reported multiple episodes of diarrhea earlier today. The patient reports only one episode of diarrhea. He states that he feels fine. Patient has a history of dementia. He has also had a recent urinary tract infection. PFSH Past Medical History Hx Anticoagulant Therapy: Yes (ASA) Arthritis: Yes Autoimmune Disease: No Heart Rhythm Problems: No Cancer: Yes (THYROID CA, COLON CA ) Cardiovascular Problems: Yes High Cholesterol: Yes Chemotherapy: Yes Chest Pain: No Congestive Heart Failure: No Coronary Artery Disease: Yes Diabetes: No Diminished Hearing: No Endocrine: Yes Gastrointestinal Disorders: Yes (COLON CA, BARRETS ESOPHAGUS) GERD: Yes Genitourinary: Yes ("BLADDER IS STRETCHED" SUPRAPUBIC CATH ) Hiatal Hernia: No Hypertension: Yes Immune Disorder: No Implanted Vascular Access Dvce: Yes Kidney Stones: No Musculoskeletal: Yes (R KNEE INJURY-TRACTION USED TO REPAIR ) Neurologic: No Psychiatric: No Reproductive: No Respiratory: No Immunizations Current: Yes Radiation Therapy: Yes Renal Failure: No Thyroid Disease: Yes (THYROID CA REMOVED ) Ulcer: No Past Surgical History Abdominal Surgery: Yes (COLOSTOMY AND REVERSAL ) AICD: No Arteriovenous Shunt: No Body Medical Devices: Cardiac stent placed 20-30 years ago Cardiac Surgery: No Coronary Stent: Yes (X1) Ear Surgery: No Endocrine Surgery: No Eye Surgery: Yes (CATARACTS/LENSES ) Genitourinary Surgery: Yes (SUPRAPUBPIC CATH ) Gynecologic Surgery: No Insulin Pump: No Joint Replacement: No Oral Surgery: Yes (TONSILECTOMY ) Pacemaker: No Thoracic Surgery: No Other Surgery: Yes (COLON CA REMOVED, BARRETTS ESOPHAGITIS PROCEDURE) Social History Alcohol Use: Yes (1-2 X PER WEEK ) Tobacco Use: No Substance Use: No Allergies-Medications (Allergen,Severity, Reaction): Coded Allergies: No Known Allergies (Verified Allergy, Unknown, 10/23/17) Reported Meds & Prescriptions Reported Meds & Active Scripts Active Lactinex (Lactobacillus Acidophilus) 1 Chew 1 Tab CHEW BID Reported Aspirin 81 Mg Chew 81 Mg CHEW DAILY Simvastatin 20 Mg Tab 20 Mg PO HS Levothyroxine (Levothyroxine Sodium) 200 Mcg Tab 187.5 Mcg PO DAILY@0600 Cetirizine (Cetirizine HCl) 10 Mg Tab 10 Mg PO DAILY Welchol (Colesevelam HCl) 625 Mg Tab 625 Mg PO BID Temazepam 15 Mg Cap 15 Mg PO HS PRN Enalapril (Enalapril Maleate) 10 Mg Tab 10 Mg PO DAILY Galantamine (Galantamine Hydrobromide) 12 Mg Tab 12 Mg PO BID Namenda Xr (Memantine) 14 Mg Caper 14 Mg PO DAILY Ranitidine (Ranitidine HCl) 150 Mg Tab 150 Mg PO BID Omeprazole 40 Mg Cap 40 Mg PO DAILY Balsalazide 750 Mg Cap 750 Mg PO TID Review of Systems ROS Limitations: Poor Historian General / Constitutional: No: Fever, Chills Cardiovascular: No: Chest Pain or Discomfort Respiratory: No: Cough, Shortness of Breath Gastrointestinal: Positive: Diarrhea, No: Nausea, Vomiting, Abdominal Pain Genitourinary: Positive: Other (Chronic suprapubic catheter) Physical Exam Narrative GENERAL: Elderly man who is awake and alert and does not appear to be in any acute distress. SKIN: warm/dry. Normal color and turgor. HEAD: Normocephalic. Atraumatic. EYES: Pupils equal and round. No scleral icterus. No injection or drainage. ENT: No nasal bleeding or discharge. Mucous membranes pink and moist. NECK: Trachea midline. Full range of motion without pain.. CARDIOVASCULAR: Regular rate and rhythm. Heart sounds are normal. RESPIRATORY: No accessory muscle use. Clear to auscultation. Breath sounds equal bilaterally. GASTROINTESTINAL: Abdomen soft. Nontender. Bowel sounds present. Nondistended. : Suprapubic catheter in place. Cloudy urine. MUSCULOSKELETAL: No obvious deformities. NEUROLOGICAL: Awake and alert. No obvious cranial nerve deficits. Motor grossly within normal limits. Normal speech. PSYCHIATRIC: Appropriate mood and affect; insight and judgment normal. Data Data Last Documented VS Vital Signs Date Time Temp Pulse Resp B/P (MAP) Pulse Ox O2 Delivery O2 Flow Rate FiO2 10/23/17 19:32 85 18 97 Room Air 10/23/17 19:28 97.4 116/64 (81) Orders Orders Sepsis Workup Initiated (10/23/17 ) Complete Blood Count With Diff (10/23/17 19:26) Comprehensive Metabolic Panel (10/23/17 19:26) Lactic Acid Sepsis Protocol (10/23/17 19:26) Urinalysis - C+S If Indicated (10/23/17 19:26) Blood Culture (10/23/17 19:26) Ecg Monitoring (10/23/17 19:26) Iv Access Insert/Monitor (10/23/17 19:) Oximetry (10/23/17 19:26) Sodium Chlor 0.9% 1000 Ml Inj (Ns 1000 M (10/23/17 19:30) Urine Culture (10/23/17 20:41) Ceftriaxone Inj (Rocephin Inj) (10/23/17 22:00) Labs Laboratory Tests Test 10/23/17 20:17 10/23/17 20:41 White Blood Count 13.0 TH/MM3 Red Blood Count 4.15 MIL/MM3 Hemoglobin 12.8 GM/DL Hematocrit 39.4 % Mean Corpuscular Volume 94.9 FL Mean Corpuscular Hemoglobin 30.8 PG Mean Corpuscular Hemoglobin Concent 32.4 % Red Cell Distribution Width 13.6 % Platelet Count 361 TH/MM3 Mean Platelet Volume 8.1 FL CBC Comment AUTO DIFF Differential Total Cells Counted 100 Neutrophils % (Manual) 74 % Band Neutrophils % 1 % Lymphocytes % 15 % Monocytes % 8 % Eosinophils % 2 % Neutrophils # (Manual) 9.8 TH/MM3 Differential Comment FINAL DIFF MANUAL Platelet Estimate NORMAL Platelet Morphology Comment NORMAL Red Cell Morphology Comment NORMAL Blood Urea Nitrogen 14 MG/DL Creatinine 1.20 MG/DL Random Glucose 127 MG/DL Total Protein 7.5 GM/DL Albumin 3.0 GM/DL Calcium Level 8.1 MG/DL Alkaline Phosphatase 72 U/L Aspartate Amino Transf (AST/SGOT) 23 U/L Alanine Aminotransferase (ALT/SGPT) 15 U/L Total Bilirubin 0.6 MG/DL Sodium Level 138 MEQ/L Potassium Level 4.0 MEQ/L Chloride Level 105 MEQ/L Carbon Dioxide Level 27.8 MEQ/L Anion Gap 5 MEQ/L Estimat Glomerular Filtration Rate 57 ML/MIN Lactic Acid Level 1.0 mmol/L Urine Color STRAW Urine Turbidity CLOUDY Urine pH 6.0 Urine Specific [place] 1.020 Urine Protein TRACE mg/dL Urine Glucose (UA) NEG mg/dL Urine Ketones 40 mg/dL Urine Occult Blood MOD Urine Nitrite POS Urine Bilirubin NEG Urine Leukocyte Esterase LARGE Urine RBC 20-24 /hpf Urine WBC 50-99 /hpf Urine Squamous Epithelial Cells 0-5 /hpf Urine Bacteria FEW /hpf Urine Yeast with Hyphae MANY Microscopic Urinalysis Comment CATH-CULTURE IND MDM Medical Decision Making Medical Screen Exam Complete: Yes Emergency Medical Condition: Yes Medical Record Reviewed: Yes (Patient was admitted here for a urinary tract infection.) Differential Diagnosis Differential diagnosis of weakness includes but is not limited to infection, CVA , electrolyte disturbance, renal failure, hypoglycemia Narrative Course This is an elderly demented patient who has a history of chronic suprapubic catheter who presents to us with chief complaint of diarrhea followed by syncope today. His urine is cloudy. He most likely has another urinary tract infection. He will be given IV fluids. Routine labs will be checked. CBC & BMP Diagram 10/23/17 20:17 Total Protein 7.5, Albumin 3.0 L, Calcium Level 8.1 L, Alkaline Phosphatase 72, Aspartate Amino Transf (AST/SGOT) 23, Alanine Aminotransferase (ALT/SGPT) 15, Total Bilirubin 0.6 UA>>+ nitrite, large LE, 20-24 RBCs, 50-99 WBCs, few bact I will give him a dose of Rocephin. He will be admitted to the hospital for further evaluation and treatment. Sepsis Criteria SIRS Criteria (2 or more): WBC > 04186, < 4000 or > 10% bands Diagnosis Primary Impression: UTI (urinary tract infection) due to urinary indwelling Still catheter Qualified Codes: T83.511A - Infection and inflammatory reaction due to indwelling urethral catheter, initial encounter; N39.0 - Urinary tract infection , site not specified Admitting Information Admitting Physician Requests: Observation Condition: Stable Maggi Patrick MD Oct 23, 2017 19:32
[2017-10-23 20:41] LABS: HEMATOCRIT 39.4 % (39.0-51.0); HEMOGLOBIN 12.8 GM/DL (13.0-17.0); MEAN CELL VOLUME 94.9 FL (80.0-100.0); MEAN CORPUSCULAR HEMOGLOBIN 30.8 PG (27.0-34.0); MEAN CORPUSCULAR HGB CONC 32.4 % (32.0-36.0); MEAN PLATELET VOLUME 8.1 FL (7.0-11.0); PLATELET COUNT 361 TH/MM3 (150-450); RED BLOOD COUNT 4.15 MIL/MM3 (4.50-5.90); RED CELL DISTRIBUTION WIDTH 13.6 % (11.6-17.2)
[2017-10-23 20:45] VITALS: BP 143/76; PULSE 81; RESP 18; O2SAT 98
[2017-10-23 20:53] LABS: CHLORIDE 105 MEQ/L (98-107); SODIUM (NA) 138 MEQ/L (136-145)
[2017-10-23 20:55] LABS: CALCIUM 8.1 MG/DL (8.5-10.1)
[2017-10-23 20:56] LABS: BICARBONATE 27.8 MEQ/L (21.0-32.0); BLOOD UREA NITROGEN 14 MG/DL (7-18); GLUCOSE,RANDOM 127 MG/DL (74-106)
[2017-10-23 20:59] LABS: ALT (GPT) 15 U/L (12-78); AST (GOT) 23 U/L (15-37); GLOMERULAR FILTRATION RATE 57 ML/MIN (>89)
[2017-10-23 21:01] LABS: BILIRUBIN, URINE NEG (NEG); BLOOD, URINE MOD (NEG); GLUCOSE,URINE NEG (NEG); KETONE, URINE 40 mg/dL (NEG); NITRITE,URINE POS (NEG); URINE LEUKOCYTE ESTERASE LARGE (NEG)
[2017-10-23 21:01] LABS: TOTAL BILIRUBIN ADULT 0.6 MG/DL (0.2-1.0); TOTAL PROTEIN 7.5 GM/DL (6.4-8.2)
[2017-10-23 21:02] LABS: ALKALINE PHOSPHATASE 72 U/L (45-117)
[2017-10-23 21:05] LABS: URINE COLOR STRAW (YELLW/STRAW)
[2017-10-23 21:06] LABS: BACTERIA, URINE FEW /hpf; SQUAMOUS EPITHELIAL CELL URINE 0-5 /hpf (0-5)
[2017-10-23 21:26] LABS: BANDS 1 % (0-6); LYMPHOCYTES 15 % (9-44); MONOCYTES 8 % (0-8); NEUTROPHIL # MANUAL DIFF 9.8 TH/MM3 (1.8-7.7); POLYS (SEG NEUTROPHILS) 74 % (16-70)
[2017-10-23 21:45] VITALS: BP 140/78; PULSE 86; RESP 16; O2SAT 95
[2017-10-23] MEDS ORDERED: SODIUM CHLORIDE 0.9% FLUSH 10 ML FLUSH IV FLUSH PRN (22:00)
[2017-10-23] MEDS ORDERED: cefTRIAXone INJ 1,000 MG in SODIUM CHLORIDE 0.9% INJ 100 ML IV ONE (22:00)
[2017-10-23] MEDS ORDERED: NALOXONE HCL 0.4 MG/ML AMP IV PUSH PRN (22:00)
[2017-10-23] MEDS ORDERED: LEVO125T4 PO (22:15)
[2017-10-23] MEDS ORDERED: BALS750C PO (22:15)
[2017-10-23] MEDS: HEPARIN SODIUM - SQ 10,000 UNITS/ML VIAL SQ SCH (23:13)
[2017-10-23 23:15] VITALS: BP 142/66; PULSE 83; RESP 16; O2SAT 94
[2017-10-23 23:30] VITALS: PULSE 78
[2017-10-24] VITALS: BP 145/80; PULSE 80; RESP 16; TEMP 97.1; O2SAT 96
[2017-10-24] MEDS: SODIUM CHLOR 0.9% 1000 ML INJ 1,000 ML IV SCH ×2 (00:03→11:20)
[2017-10-24 04:00] VITALS: BP 129/70; PULSE 78; RESP 20; TEMP 96.3; O2SAT 93
[2017-10-24] MEDS: HEPARIN SODIUM - SQ 10,000 UNITS/ML VIAL SQ SCH ×3 (05:11→22:14)
[2017-10-24 07:27] LABS: AUTOMATED NEUTROPHIL # 5.8 TH/MM3 (1.8-7.7); BASOPHIL % 0.4 % (0.0-2.0); EOSINOPHIL # 0.2 TH/MM3 (0-0.4); EOSINOPHIL % 1.9 % (0.0-4.0); HEMOGLOBIN 11.5 GM/DL (13.0-17.0); LYMPH % 21.4 % (9.0-44.0); LYMPHOCYTE # 1.9 TH/MM3 (1.0-4.8); MEAN CELL VOLUME 94.8 FL (80.0-100.0); MEAN CORPUSCULAR HEMOGLOBIN 33.1 PG (27.0-34.0); MEAN CORPUSCULAR HGB CONC 34.9 % (32.0-36.0); MEAN PLATELET VOLUME 8.3 FL (7.0-11.0); MONOCYTE # 0.8 TH/MM3 (0-0.9); NEUT % 67.3 % (16.0-70.0); PLATELET COUNT 316 TH/MM3 (150-450); RED BLOOD COUNT 3.48 MIL/MM3 (4.50-5.90); RED CELL DISTRIBUTION WIDTH 13.8 % (11.6-17.2); WHITE BLOOD COUNT 8.7 TH/MM3 (4.0-11.0)
[2017-10-24 07:34] LABS: CALCIUM 7.5 MG/DL (8.5-10.1)
[2017-10-24 07:35] LABS: BICARBONATE 25.6 MEQ/L (21.0-32.0)
[2017-10-24 08:00] VITALS: BP 154/85; PULSE 78; RESP 18; TEMP 96.1; O2SAT 95
[2017-10-24] MEDS: SODIUM CHLORIDE 0.9% FLUSH 10 ML FLUSH IV FLUSH SCH ×2 (09:00→20:13)
--- NOTE | 2017-10-24 10:28 | RADRPT ---
EXAM DATE/TIME: 10/24/2017 09:35 [facility] COMPARISON: No previous studies available for comparison. INDICATIONS : Syncope. MEDICAL HISTORY : Hypercholesterolemia. Hypertension. Gastroesophageal reflux disease. Neck pain. Coronary artery disea se. Colon cancer. Thyroid cancer. Urinary tract infection. Chemotherapy. Shingles. SURGICAL HISTORY : Tonsillectomy. Thyroid cancer removed. Cataract surgery. Coronary stent. Colostomy. Right knee repair . ENCOUNTER: Initial ACUITY: 1 day PAIN SCORE: 0/10 LOCATION: Bilateral neck PEAK SYSTOLIC VELOCITIES (cm/sec): ICA/CCA RATIO: Right: 1.0 Left: 0.8 ICA: Right: 98.3 Left: 79.0 CCA: Right: 94.4 Left: 93.5 ECA: Right: 113.6 Left: 80.6 VERTEBRAL: Right: 75.8 antegrade Left: 66.1 antegrade Elevated flow velocities and ICA/CCA ratios have been found to correlate with increased degrees of vessel stenosis, calculated as percentage of diameter relative to a normal segment of distal ICA/CCA FINDINGS: RIGHT CAROTID: No significant stenosis is visualized. Minimal plaque. The waveforms are within normal limits. LEFT CAROTID: No significant stenosis is visualized. Minimal plaque. The waveforms are within normal limits. VERTEBRAL ARTERIES: Antegrade flow is seen in both vertebral arteries. MISCELLANEOUS: None. CONCLUSION: 1. No hemodynamically significant stenosis in either carotid artery. Ag Olivas MD on October 24, 2017 at 10:24 Board Certified Radiologist. This report was verified electronically.
[2017-10-24 12:00] VITALS: BP 152/87; PULSE 79; RESP 18; TEMP 97.4; O2SAT 96
[2017-10-24] MEDS ORDERED: MEMANTINE 14 MG PO SCH (13:15)
--- NOTE | 2017-10-24 13:19 | HHI.HP ---
HPI Service [facility] Primary Care Physician Viktoria Pak MD Admission Diagnosis UTI Diagnoses: Chief Complaint: Syncopal episode Travel History International Travel<30 Days: No Contact w/Intl Traveler <30 Da: No Traveled to Known Affected Are: No History of Present Illness This patient is an 87-year-old gentleman with a history of chronic diarrhea who follows up with his local casing grader. Apparently he was having multiple episodes of diarrhea and went to the bathroom and passed out. 911 was called and the patient does not recall the events. He says he was at the bathroom door and then he remembers emergency personnel being there. He does have dementia but is independent with his ADLs. I spoke with his significant other reports that the patient has had diarrhea for several months. Multiple antibiotics have been given in the meantime for abnormal urinalysis. The patient does have a super pubic catheter. Previous evaluation here in April did show an pansensitive Klebsiella which was treated appropriately. Since that time he has been at [facility] for further evaluation and prior to this hospitalization he was at [facility].. He also was in the rehabilitation facility. He has lost minimal weight but has been unable to have control of his diarrhea. Patient does have a history of ulcerative colitis. At this time the patient is alert and oriented. He has not had diarrhea this morning. He is recommended for observation due to the syncopal episode Review of Systems Constitutional: DENIES: Diaphoretic episodes, Fatigue, Fever, Weight gain, Weight loss, Chills, Dizziness, Change in appetite, Night Sweats Endocrine: DENIES: Heat/cold intolerance, Polydipsia, Polyuria, Polyphagia Eyes: DENIES: Blurred vision, Diplopia, Eye inflammation, Eye pain, Vision loss , Photosensitivity, Double Vision Ears, nose, mouth, throat: DENIES: Tinnitus, Hearing loss, Vertigo, Nasal discharge, Oral lesions, Throat pain, Hoarseness, Ear Pain, Running Nose, Epistaxis, Sinus Pain, Toothache, Odynophagia Respiratory: DENIES: Apneas, Cough, Snoring, Wheezing, Hemoptysis, Sputum production, Shortness of breath Cardiovascular: DENIES: Chest pain, Palpitations, Syncope, Dyspnea on Exertion , PND, Lower Extremity Edema, Orthopnea, Claudication Gastrointestinal: COMPLAINS OF: Diarrhea (chronic), DENIES: Abdominal pain, Black stools, Bloody stools, Constipation, Nausea, Vomiting, Difficulty Swallowing, Anorexia Genitourinary: DENIES: Sexual dysfunction, Urinary frequency, Urinary incontinence, Urgency, Hematuria, Dysuria, Nocturia, Penile Discharge, Testicular Pain, Testicular Swelling Musculoskeletal: DENIES: Joint pain, Muscle aches, Stiffness, Joint Swelling, Back pain, Neck pain Integumentary: DENIES: Abnormal pigmentation, Nail changes, Pruritus, Rash Hematologic/lymphatic: DENIES: Bruising, Lymphadenopathy Immunologic/allergic: DENIES: Eczema, Urticaria Neurologic: DENIES: Abnormal gait, Headache, Localized weakness, Paresthesias, Seizures, Speech Problems, Tremor, Poor Balance Psychiatric: COMPLAINS OF: Confusion Except as stated in HPI: all other systems reviewed are Neg Past Family Social History Past Medical History Suprapubic catheter ([facility]) Dementia Ulcerative Colitis Thyroid Ca, Colon Ca cataracts tonsils barrets Past Surgical History thyroid colon resection Reported Medications Reviewed in the EMR, Imodium tid Allergies: Coded Allergies: No Known Allergies (Verified Allergy, Unknown, 10/23/17) Active Ordered Medications Reviewed in the EMR Family History Unknown family history Social History Lives with family no tobacco or etoh dependency Physical Exam Vital Signs Vital Signs Date Time Temp Pulse Resp B/P (MAP) Pulse Ox O2 Delivery O2 Flow Rate FiO2 10/24/17 08:00 96.1 78 18 154/85 (108) 95 10/24/17 04:00 96.3 78 20 129/70 (89) 93 10/24/17 00:00 97.1 80 16 145/80 (101) 96 10/23/17 23:30 78 10/23/17 23:17 83 16 94 10/23/17 23:15 83 16 142/66 (91) 94 Room Air 10/23/17 21:45 86 16 140/78 (98) 95 Room Air 10/23/17 20:45 81 18 143/76 (98) 98 Room Air 10/23/17 19:32 85 18 97 Room Air 10/23/17 19:32 97 Room Air 10/23/17 19:28 97.4 85 18 116/64 (53) 97 Physical Exam GENERAL: This is a well-nourished, well-developed patient, in no apparent distress. SKIN: No rashes, ecchymoses or lesions. Cool and dry. HEAD: Atraumatic. Normocephalic. No temporal or scalp tenderness. EYES: Pupils equal round and reactive. Extraocular motions intact. No scleral icterus. No injection or drainage. ENT: Nose without bleeding, purulent drainage or septal hematoma. Throat without erythema, tonsillar hypertrophy or exudate. Uvula midline. Airway patent. NECK: Trachea midline. No JVD or lymphadenopathy. Supple, nontender, no meningeal signs. CARDIOVASCULAR: Regular rate and rhythm without murmurs, gallops, or rubs. RESPIRATORY: Clear to auscultation. Breath sounds equal bilaterally. No wheezes , rales, or rhonchi. GASTROINTESTINAL: Abdomen soft, non-tender, nondistended. No hepato-splenomegaly , or palpable masses. No guarding. MUSCULOSKELETAL: Extremities without clubbing, cyanosis, or edema. No joint tenderness, effusion, or edema noted. No calf tenderness. Negative Homans sign bilaterally. NEUROLOGICAL: Awake and alert. Cranial nerves II through XII intact. Motor and sensory grossly within normal limits. Five out of 5 muscle strength in all muscle groups. Normal speech. Laboratory Laboratory Tests Test 10/23/17 20:17 10/23/17 20:41 10/24/17 06:16 White Blood Count 13.0 8.7 Red Blood Count 4.15 3.48 Hemoglobin 12.8 11.5 Hematocrit 39.4 33.0 Mean Corpuscular Volume 94.9 94.8 Mean Corpuscular Hemoglobin 30.8 33.1 Mean Corpuscular Hemoglobin Concent 32.4 34.9 Red Cell Distribution Width 13.6 13.8 Platelet Count 361 316 Mean Platelet Volume 8.1 8.3 CBC Comment AUTO DIFF DIFF FINAL Differential Total Cells Counted 100 Neutrophils % (Manual) 74 Band Neutrophils % 1 Lymphocytes % 15 Monocytes % 8 Eosinophils % 2 Neutrophils # (Manual) 9.8 Differential Comment FINAL DIFF MANUAL Platelet Estimate NORMAL Platelet Morphology Comment NORMAL Red Cell Morphology Comment NORMAL Blood Urea Nitrogen 14 11 Creatinine 1.20 1.00 Random Glucose 127 82 Total Protein 7.5 Albumin 3.0 Calcium Level 8.1 7.5 Alkaline Phosphatase 72 Aspartate Amino Transf (AST/SGOT) 23 Alanine Aminotransferase (ALT/SGPT) 15 Total Bilirubin 0.6 Sodium Level 138 141 Potassium Level 4.0 3.7 Chloride Level 105 109 Carbon Dioxide Level 27.8 25.6 Anion Gap 5 6 Estimat Glomerular Filtration Rate 57 70 Lactic Acid Level 1.0 Urine Color STRAW Urine Turbidity CLOUDY Urine pH 6.0 Urine Specific [place] 1.020 Urine Protein TRACE Urine Glucose (UA) NEG Urine Ketones 40 Urine Occult Blood MOD Urine Nitrite POS Urine Bilirubin NEG Urine Leukocyte Esterase LARGE Urine RBC 20-24 Urine WBC 50-99 Urine Squamous Epithelial Cells 0-5 Urine Bacteria FEW Urine Yeast with Hyphae MANY Microscopic Urinalysis Comment CATH-CULTURE IND Neutrophils (%) (Auto) 67.3 Lymphocytes (%) (Auto) 21.4 Monocytes (%) (Auto) 9.0 Eosinophils (%) (Auto) 1.9 Basophils (%) (Auto) 0.4 Neutrophils # (Auto) 5.8 Lymphocytes # (Auto) 1.9 Monocytes # (Auto) 0.8 Eosinophils # (Auto) 0.2 Basophils # (Auto) 0.0 Date/Time Source Procedure Growth Status 10/23/17 20:23 Blood Peripheral Aerobic Blood Culture - Preliminary NO GROWTH IN 1 DAY Resulted 10/23/17 20:23 Blood Peripheral Anaerobic Blood Culture - Preliminary NO GROWTH IN 1 DAY Resulted 10/23/17 20:41 Urine Clean Catch Urine Culture Pending Received Result Diagram: 10/24/1716 10/24/17 0616 Caprini VTE Risk Assessment Caprini VTE Risk Assessment: Mod/High Risk (score >= 2) Caprini Risk Assessment Model Point Value = 1 Point Value = 2 Point Value = 3 Point Value = 5 Age 41-60 Minor surgery BMI > 25 kg/m2 Swollen legs Varicose veins or History of unexplained or recurrent spontaneous Oral contraceptives or hormone replacement Sepsis (< 1 month) Serious lung disease, including pneumonia (< 1 month) Abnormal pulmonary function Acute myocardial infarction Congestive heart failure (< 1 month) History of inflammatory bowel disease Medical patient at bed rest Age 61-74 Arthroscopic surgery Major open surgery (> 45 min) Laparoscopic surgery (> 45 min) Malignancy Confined to bed (> 72 hours) Immobilizing plaster cast Central venous access Age >= 75 History of VTE Family history of VTE Factor V Leiden Prothrombin [id number] Lupus anticoagulant Anticardiolipin antibodies Elevated serum homocysteine Heparin-induced thrombocytopenia Other congenital or acquired thrombophilia Stroke (< 1 month) Elective arthroplasty Hip, pelvis, or leg fracture Acute spinal cord injury (< 1 month) Prophylaxis Regimen Total Risk Factor Score Risk Level Prophylaxis Regimen 0-1 Low Early ambulation 2 Moderate Order ONE of the following: *Sequential Compression Device (SCD) *Heparin 5000 units SQ BID 3-4 Higher Order ONE of the following medications: *Heparin 5000 units SQ TID *Enoxaparin/Lovenox 40 mg SQ daily (WT < 150 kg, CrCl > 30 mL/min) *Enoxaparin/Lovenox 30 mg SQ daily (WT < 150 kg, CrCl > 10-29 mL/min) *Enoxaparin/Lovenox 30 mg SQ BID (WT < 150 kg, CrCl > 30 mL/min) AND/OR *Sequential Compression Device (SCD) 5 or more Highest Order ONE of the following medications: *Heparin 5000 units SQ TID (Preferred with Epidurals) *Enoxaparin/Lovenox 40 mg SQ daily (WT < 150 kg, CrCl > 30 mL/min) *Enoxaparin/Lovenox 30 mg SQ daily (WT < 150 kg, CrCl > 10-29 mL/min) *Enoxaparin/Lovenox 30 mg SQ BID (WT < 150 kg, CrCl > 30 mL/min) AND *Sequential Compression Device (SCD) Assessment and Plan Problem List: (1) Syncope ICD Code: R55 - Syncope and collapse Status: Resolved Plan: etiology unclear, carotids neg PT/OT eval (2) Dementia ICD Code: F03.90 - Unspecified dementia without behavioral disturbance Plan: Stable on galantamine, namenda (3) UTI (urinary tract infection) due to urinary indwelling Still catheter ICD Code: T83.511A - Infection and inflammatory reaction due to indwelling urethral catheter, initial encounter; N39.0 - Urinary tract infection, site not specified Status: Resolved Plan: likely complicated, we'll continue Rocephin and follow cultures old cultures reviewed (4) Diarrhea in adult patient ICD Code: R19.7 - Diarrhea, unspecified Status: Resolved Plan: Recurrent for 1 year ([facility] GI appt 2.23) Rule out C. 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 Bennett later this month Continue home medications Problem Qualifiers (1) UTI (urinary tract infection) due to urinary indwelling Still catheter: Qualified Codes: T83.511A - Infection and inflammatory reaction due to indwelling urethral catheter, initial encounter; N39.0 - Urinary tract infection , site not specified Heidi Mello MD Oct 24, 2017 13:19
[2017-10-24] MEDS: ENALAPRIL MALEATE 10 MG TAB PO SCH (14:00)
[2017-10-24] MEDS: CHOLESTYRAMINE 4 GM PACKET PO SCH ×2 (14:00→20:12)
--- NOTE | 2017-10-24 14:44 | HHI.FF ---
Face to Face Verification Diagnosis: (1) Syncope (2) Dementia Physical Therapy Order: Evaluate and Treat, Improve ambulation Occupational Therapy Order: Evaluate and Treat, Gross motor coordination Pipe Line Walker Order: To Evaluate: Living conditions/environment Order: To Provide: Long range planning I have seen patient Lane Camilo on 10/24/17. My clinical findings support the need for the requested home health care services because: Ltd mobility - disease progression Med compliance is questionable I certify that my clinical findings support that this patient is homebound because: Impaired cognitive ability/safety Unsteady gait/balance Heidi Mello MD Oct 24, 2017 14:44
--- NOTE | 2017-10-24 14:47 | ECHRPT ---
Indication: heart failure CONCLUSIONS Normal left ventricular size. The left ventricular systolic function is low normal with an estimated ejection fraction in the rang e of 50- 55%. Smhye-kr-rbhm mitral valve regurgitation. Mild aortic valve regurgitation. P1/2t 496 There is mild tricuspid valve regurgitation. The estimated pulmonary arterial pressure is 33.6 mmHg. BP: / HR: Rhythm: MEASUREMENTS (Male / Female) Normal Values Technical Quality:Fair 2D ECHO LV Diastolic Diameter PLAX 4.0 cm 4.2 - 5.9 / 3.9 - 5.3 cm LV Systolic Diameter PLAX 3.1 cm IVS Diastolic Thickness 1.7 cm 0.6 - 1.0 / 0.6 - 0.9 cm LVPW Diastolic Thickness 1.0 cm 0.6 - 1.0 / 0.6 - 0.9 cm LV Relative Wall Thickness 0.7 RV Internal Dim ED PLAX 3.0 cm M-MODE Aortic Root Diameter MM 3.6 cm LA Systolic Diameter MM 3.8 cm LA Ao Ratio MM 1.1 AV Cusp Separation MM 1.4 cm DOPPLER AV Peak Velocity 152.0 cm/s AV Peak Gradient 9.2 mmHg AV Mean Gradient 5.0 mmHg AV Velocity Time Integral 37.3 cm AI Peak Velocity 369.0 cm/s AI Peak Gradient 54.5 mmHg AI Pressure Half Time 496.0 ms Mitral E Point Velocity 67.6 cm/s Mitral A Point Velocity 98.7 cm/s Mitral E to A Ratio 0.7 LV E' Lateral Velocity 8.6 cm/s Mitral E to LV E' Lateral Ratio 7.9 LV E' Septal Velocity 5.5 cm/s Mitral E to LV E' Septal Ratio 12.4 TR Peak Velocity 243.0 cm/s TR Peak Gradient 23.6 mmHg Right Atrial Pressure 10.0 mmHg Pulmonary Artery Systolic Pressu 33.6 mmHg Right Ventricular Systolic Press 33.6 mmHg FINDINGS LEFT VENTRICLE Normal left ventricular size. The left ventricular systolic function is low normal with an estimated ejection fraction in the rang e of 50- 55%. Doppler parameters are consistent with impaired left ventricular relaxtion (grade 1 diastolic dysfun ction). RIGHT VENTRICLE Normal right ventricular size and systolic function. LEFT ATRIUM The left atrial size is normal. RIGHT ATRIUM The right atrial size is normal. ATRIAL SEPTUM Normal atrial septal thickness without atrial level shunting by limited color doppler interrogation. AORTA The aortic root and proximal ascending aorta are normal in size on limited imaging. MITRAL VALVE Structurally normal mitral valve. Hjcpi-ht-ldep mitral valve regurgitation. AORTIC VALVE Trileaflet aortic valve. Mild aortic valve regurgitation. P1/2t 496 TRICUSPID VALVE Structurally normal tricuspid valve. There is mild tricuspid valve regurgitation. The estimated pulmonary arterial pressure is 33.6 mmHg. PULMONARY VALVE No pulmonary valve regurgitation or stenosis. VESSELS The inferior vena cava is normal in size. PERICARDIUM No pericardial effusion. Ubaldo Trevizo MD (Electronically Signed) Final Date:24 October 2017 14:46
[2017-10-24] MEDS: ASPIRIN 81 MG CHEW TAB CHEW SCH (15:22)
[2017-10-24] MEDS: COLESEVELAM HCL 625 MG TAB PO SCH ×2 (15:22→20:13)
[2017-10-24] MEDS: PANTOPRAZOLE SOD 40 MG DELAYED RELEASE TAB PO SCH (15:22)
[2017-10-24 16:00] VITALS: BP 148/88; PULSE 79; RESP 18; TEMP 98; O2SAT 94
[2017-10-24] MEDS ORDERED: BALSALAZIDE 2250 MG PO SCH (18:00)
[2017-10-24 20:00] VITALS: BP 180/82; PULSE 76; RESP 16; TEMP 98.7; O2SAT 96
[2017-10-24] MEDS: LACTOBACILLUS ACIDOPHILUS TAB PO SCH (20:13)
[2017-10-24] MEDS: GALANTAMINE HYDROBROMIDE 4 MG TAB PO SCH (20:13)
[2017-10-24] MEDS ORDERED: PRAVASTATIN SOD 40 MG TAB PO SCH (21:00)
[2017-10-24] MEDS ORDERED: NON-FORMULARY DRUG (Ranitidine 150 MG) PO SCH (21:00)
[2017-10-24] MEDS ORDERED: cefTRIAXone INJ 1,000 MG in SODIUM CHLORIDE 0.9% INJ 100 ML IV SCH (22:00)
[2017-10-25] VITALS: BP 137/79; PULSE 77; RESP 18; TEMP 97.4; O2SAT 90
[2017-10-25] MEDS: SODIUM CHLOR 0.9% 1000 ML INJ 1,000 ML IV SCH (00:40)
[2017-10-25] MEDS ORDERED: LEVOTHYROXINE SODIUM 125 MCG TAB PO SCH (06:00)
[2017-10-25] MEDS: HEPARIN SODIUM - SQ 10,000 UNITS/ML VIAL SQ SCH (06:45)
[2017-10-25 08:00] VITALS: BP 136/81; PULSE 68; RESP 16; TEMP 97.6; O2SAT 96
[2017-10-25] MEDS: GALANTAMINE HYDROBROMIDE 4 MG TAB PO SCH (09:00)
[2017-10-25] MEDS ORDERED: MEMANTINE HCL 10 MG TAB PO SCH (09:00)
[2017-10-25] MEDS: CHOLESTYRAMINE 4 GM PACKET PO SCH (10:06)
[2017-10-25] MEDS: ASPIRIN 81 MG CHEW TAB CHEW SCH (10:07)
[2017-10-25] MEDS: SODIUM CHLORIDE 0.9% FLUSH 10 ML FLUSH IV FLUSH SCH (10:07)
[2017-10-25] MEDS: COLESEVELAM HCL 625 MG TAB PO SCH (10:07)
[2017-10-25] MEDS: ENALAPRIL MALEATE 10 MG TAB PO SCH (10:07)
[2017-10-25] MEDS: PANTOPRAZOLE SOD 40 MG DELAYED RELEASE TAB PO SCH (10:07)
[2017-10-25] MEDS: LACTOBACILLUS ACIDOPHILUS TAB PO SCH (10:07)
[2017-10-25] MEDS ORDERED: CHOL4POW4 PO (10:41)
[2017-10-25] MEDS ORDERED: CIPR-9 PO (10:41)
--- NOTE | 2017-10-25 10:48 | HHI.DS ---
Discharge Summary Admission Date Oct 23, 2017 at 21:54 Discharge Date: Oct 25, 2017 Admitting Diagnosis UTI (1) Syncope ICD Code: R55 - Syncope and collapse Status: Resolved (2) Dementia ICD Code: F03.90 - Unspecified dementia without behavioral disturbance (3) UTI (urinary tract infection) due to urinary indwelling Still catheter ICD Code: T83.511A - Infection and inflammatory reaction due to indwelling urethral catheter, initial encounter; N39.0 - Urinary tract infection, site not specified Status: Resolved (4) Diarrhea in adult patient ICD Code: R19.7 - Diarrhea, unspecified Status: Resolved (5) Ulcerative colitis ICD Code: K51.90 - Ulcerative colitis, unspecified, without complications Procedures none Brief History - From Admission This patient is an 87-year-old gentleman with a history of chronic diarrhea who follows up with his local client success specialist. Apparently he was having multiple episodes of diarrhea and went to the bathroom and passed out. 911 was called and the patient does not recall the events. He says he was at the bathroom door and then he remembers emergency personnel being there. He does have dementia but is independent with his ADLs. I spoke with his significant other reports that the patient has had diarrhea for several months. Multiple antibiotics have been given in the meantime for abnormal urinalysis. The patient does have a super pubic catheter. Previous evaluation here in April did show an pansensitive Klebsiella which was treated appropriately. Since that time he has been at [facility] for further evaluation and prior to this hospitalization he was at [facility].. He also was in the rehabilitation facility. He has lost minimal weight but has been unable to have control of his diarrhea. Patient does have a history of ulcerative colitis. At this time the patient is alert and oriented. He has not had diarrhea this morning. He is recommended for observation due to the syncopal episode CBC/BMP: 10/24/17 0616 10/24/17 0616 Significant Findings Laboratory Tests Test 10/23/17 20:17 10/23/17 20:41 10/24/17 06:16 White Blood Count 13.0 TH/MM3 (4.0-11.0) Red Blood Count 4.15 MIL/MM3 (4.50-5.90) 3.48 MIL/MM3 (4.50-5.90) Hemoglobin 12.8 GM/DL (13.0-17.0) 11.5 GM/DL (13.0-17.0) Neutrophils % (Manual) 74 % (16-70) Neutrophils # (Manual) 9.8 TH/MM3 (1.8-7.7) Random Glucose 127 MG/DL (74-106) Albumin 3.0 GM/DL (3.4-5.0) Calcium Level 8.1 MG/DL (8.5-10.1) 7.5 MG/DL (8.5-10.1) Estimat Glomerular Filtration Rate 57 ML/MIN (>89) 70 ML/MIN (>89) Urine Turbidity CLOUDY (CLEAR) Urine Ketones 40 mg/dL (NEG) Urine Occult Blood MOD (NEG) Urine Nitrite POS (NEG) Urine Leukocyte Esterase LARGE (NEG) Urine RBC 20-24 /hpf (0-3) Urine WBC 50-99 /hpf (0-5) Urine Bacteria FEW /hpf (NONE) Urine Yeast with Hyphae MANY (NONE) Hematocrit 33.0 % (39.0-51.0) Monocytes (%) (Auto) 9.0 % (0.0-8.0) Chloride Level 109 MEQ/L (98-107) Imaging Last Impressions Carotid Artery Ultrasound 10/24/17 0000 Signed Impressions: Service Date/Time: Tuesday, October 24, 2017 09:35 - CONCLUSION: 1. No hemodynamically significant stenosis in either carotid artery. Ag Olivas MD PE at Discharge GENERAL: This is a well-nourished, well-developed patient, in no apparent distress. CARDIOVASCULAR: Regular rate and rhythm without murmurs, gallops, or rubs. RESPIRATORY: Clear to auscultation. Breath sounds equal bilaterally. No wheezes , rales, or rhonchi. GASTROINTESTINAL: Abdomen soft, non-tender, nondistended. Normal active bowel sounds, superpubic catheter MUSCULOSKELETAL: Extremities without clubbing, cyanosis, or edema. NEURO: Alert & Oriented x4 to person, place, time, situation. Moves all ext x4 Pt update on day of discharge Patient seen today. No further diarrhea. No new events overnight. Urinary tract infection appears to be due to Klebsiella sensitive to ciprofloxacin. Superpubic catheter should be changed today. Hospital Course This patient is an 87-year-old gentleman with a history of dementia and suprapubic catheter. He was found again to have urinary tract infection. There were other complaints of diarrhea which appears to be resolved. Patient has been given Questran. Patient's diarrhea was resolved we will unable to collect C. difficile. Patient has had multiple evaluations for the C. difficile in the past and these were negative. Pt Condition on Discharge: Good Discharge Disposition: Disch w/ Home Health Serv Discharge Time: > 30 minutes Discharge Instructions DIET: Follow Instructions for: As Tolerated, No Restrictions Activities you can perform: Regular-No Restrictions Follow up Referrals: PCP Follow-up - 1 Week New Medications: Ciprofloxacin (Cipro) 500 Mg Tab 500 MG PO BID for Infection, #14 TAB 0 Refills Cholestyramine (Cholestyramine) 4 Gm/Pkt Powd 4 GM PO DAILY for Diarrhea, #62 PACKET 1 packet contains 4 grams of cholestyramine. Continued Medications: Aspirin (Aspirin) 81 Mg Chew 81 MG CHEW DAILY, TAB 0 Refills Balsalazide (Balsalazide) 750 Mg Cap 2250 MG PO TID for Ulcerative colitis, #270 CAP 0 Refills Cetirizine (Cetirizine) 10 Mg Tab 10 MG PO DAILY for Allergies, TAB 0 Refills Colesevelam (Welchol) 625 Mg Tab 625 MG PO BID for Hyperlipidemia,type 2 diabetes, #180 TAB 0 Refills Enalapril (Enalapril) 10 Mg Tab 10 MG PO DAILY, #30 TAB 0 Refills Galantamine (Galantamine) 12 Mg Tab 12 MG PO BID for Alzheimer's Dementia, #60 TAB 0 Refills Lactobacillus Acidophilus (Lactinex) 1 Chew 1 TAB CHEW BID for Nutritional Supplement, #60 TAB 0 Refills Levothyroxine (Levothyroxine) 125 Mcg Tab 125 MCG PO DAILY for Thyroid, #30 TAB 0 Refills Memantine Er (Namenda Xr) 14 Mg Caper 14 MG PO DAILY for Alzheimer Disease, #30 CAP 0 Refills Omeprazole (Omeprazole) 40 Mg Cap 40 MG PO DAILY, #30 CAP 0 Refills Ranitidine (Ranitidine) 150 Mg Tab 150 MG PO BID for Heartburn Management, #60 TAB 0 Refills Simvastatin (Simvastatin) 20 Mg Tab 20 MG PO HS for Cholesterol Management, #30 TAB 0 Refills Temazepam (Temazepam) 15 Mg Cap 15 MG PO HS PRN for INSOMNIA, #30 CAP 0 Refills Heidi Mello MD Oct 25, 2017 10:48
== END 2017-10-25 13:27 | disposition home health service (06) ==
LOC: PHED 19:08 → PHEDA 21:54 → PH3B 23:22
PROVIDERS: ADMIT Hospitalist; ATTEND Hospitalist
DX: R55 Syncope and collapse (principal); F03.90 Unspecified dementia, unspecified severity, without behavioral disturbance, psychotic disturbance, mood disturbance, and anxiety; T83.511A Infection and inflammatory reaction due to indwelling urethral catheter, initial encounter; N39.0 Urinary tract infection, site not specified; R19.7 Diarrhea, unspecified; K51.90 Ulcerative colitis, unspecified, without complications; I25.10 Atherosclerotic heart disease of native coronary artery without angina pectoris; I10 Essential (primary) hypertension; K21.9 Gastro-esophageal reflux disease without esophagitis; Z85.850 Personal history of malignant neoplasm of thyroid; Z85.038 Personal history of other malignant neoplasm of large intestine; Z95.5 Presence of coronary angioplasty implant and graft; Z79.899 Other long term (current) drug therapy; Z79.82 Long term (current) use of aspirin; Y84.6 Urinary catheterization as the cause of abnormal reaction of the patient, or of later complication, without mention of misadventure at the time of the procedure
CPT/HCPCS: 80048; 80053; 81001; 83605; 85007; 85025; 85027; 87040; 87077; 87086; 87186; 93306; 93880; 96361; 96365; 96366; 96372; 97163; 97167; 99285; G0378; G8987; G8988; J0696; J1644; J7030